=== PATIENT | female | born 1995 | race Two or more races ===

== ENCOUNTER 2020-12-29 13:15 | Outpatient (REF) | payer OTHER, SELFPAY ==
[2020-12-30 02:38] LABS: CT PCR DETECTED (Not Detect.); NG PCR NOT DETECTED (Not Detect.)
== END 2020-12-29 13:16 | disposition home or self-care (01) ==
LOC: HO.LAB 13:15
PROVIDERS: Visit Provider Advanced Practice Midwife
DX: Z01.419 Encounter for gynecological examination (general) (routine) without abnormal findings (principal); Z11.3 Encounter for screening for infections with a predominantly sexual mode of transmission; N60.81 Other benign mammary dysplasias of right breast; Z20.2 Contact with and (suspected) exposure to infections with a predominantly sexual mode of transmission
CPT/HCPCS: 87491; 87591; 88142

== ENCOUNTER 2021-04-09 14:14 | Outpatient (REF) | payer OTHER, SELFPAY ==
[2021-04-10 03:02] LABS: CT PCR NOT DETECTED (Not Detect.); NG PCR NOT DETECTED (Not Detect.)
== END 2021-04-09 14:15 | disposition home or self-care (01) ==
LOC: HO.LAB 14:14
PROVIDERS: Visit Provider Advanced Practice Midwife
DX: Z20.2 Contact with and (suspected) exposure to infections with a predominantly sexual mode of transmission (principal)
CPT/HCPCS: 87491; 87591; 99212

== ENCOUNTER 2021-07-07 12:46 | Emergency (ER) | payer OTHER, SELFPAY ==
--- NOTE | ~2021-07-07 | CT_ITS ---
EXAMINATION: CT ABDOMEN WITHOUT CONTRAST CLINICAL INFORMATION: Right flank pain. COMPARISON: 04/07/2016 TECHNIQUE: Contiguous axial thin section helical images of the abdomen were performed without contrast. The data set was reformatted in the coronal and sagittal planes and reviewed on an independent workstation. This CT examination was performed using dose optimization techniques as appropriate, variously including the following: *Automated exposure control *Adjustment of mA and/or kV according to patient size (this includes techniques or standardized protocols for targeted exams where dose is matched to indication/reason for exam; i.e. extremities or head) *Use of iterative reconstruction technique DLP: 646 mGy-cm FINDINGS: LUNG BASES: Lung bases are clear. LIVER, GALLBLADDER, BILIARY TREE: Liver is homogeneous of normal attenuation without intrahepatic masses or ductal dilatation. Gallbladder is distended without obvious stones. PANCREAS: Unremarkable. SPLEEN: Normal. ADRENAL GLANDS AND KIDNEYS: Adrenal glands are unremarkable. Left kidney demonstrates no hydronephrosis or masses and no calcifications seen. Right kidney revealed multiple calculi in the collecting system with conglomerate of stones in interpolar area measuring 0.6 cm and mild hydronephrosis secondary to partial obstruction of ureteropelvic junction by 0.7 cm conglomerate of stones. Right ureter is not dilated. Urinary bladder is decompressed. BOWEL LOOPS: Bowel loops are normal without evidence of diverticulitis, diverticulosis, colitis. Normal appendix present. LYMPH NODES: Normal. VASCULAR: Unremarkable. BONES: Unremarkable. PELVIC ORGANS: There is IUD in the uterus. The uterus is anteflexed. CT/CT kidney stone IMPRESSION: Right nephrolithiasis with multiple calculi as well as partially obstructing conglomerate of stones in the UPJ. Fleischner guidelines were followed.
[2021-07-07 12:46] VITALS: BP 119/64; PULSE 91; RESP 16; TEMP 36.9; O2SAT 99; BMI 32.2
--- NOTE | 2021-07-07 13:32 | ED_ITS ---
HPI - Abdominal Pain General Chief Complaint: Abdominal Pain Stated Complaint: Kidney stone Time Seen by Provider: 07/07/21 13:01 Source: patient Mode of arrival: ambulatory Limitations: no limitations History of Present Illness HPI narrative: Patient is a 25 year old female presenting to the emergency department today with right flank pain. Patient states that starting yesterday, she started to have right flank pain. Patient states that she has an extensive history of kidney stones. Patient denies any dizziness, lightheadedness, nausea, vomiting, fever, chills, blurry vision, double vision, loss of vision, chest pain, difficulty breathing, shortness of breath, back pain, night sweats, pain with urination, increased urinary frequency, increased urinary urgency, blood in her urine or stool, syncope or a near syncopal episode, recent trauma or falls, bowel incontinence, bladder incontinence, bowel retention, bladder retention, or any other complaints at this time. Patient states that she is also currently on her menstral cycle. MD elicited complaint: flank pain Pertinent past history: kidney stones Onset (ago): day(s) (1) Pain Consistency: constant Location: R flank Related Data Home Medications Medication Instructions Recorded Confirmed copper 380 square mm intrauterine INTRAUTERINE 12/29/20 device (ParaGard T 380A) Previous Rx's Medication Instructions Recorded azithromycin 500 mg tablet 1,000 mg PO ONCE #2 tab 01/04/21 Allergies Allergy/AdvReac Type Severity Reaction Status Date / Time amoxicillin [Amoxicillin] Allergy Severe ANAPHYLAXIS Verified 04/09/21 14:19 Review of Systems Constitutional: Reports no additional constitutional complaints, Denies chills, Denies fever(s) and Denies night sweats Eyes: Reports no additional eye complaints, Denies blurry vision, Denies change in vision, Denies diplopia, Denies eye discharge, Denies loss of vision and Denies eye pain Denies dizziness Cardiovascular: Reports no additional cardiovascular complaints, Denies chest pain, Denies lightheadedness, Denies Loss of Consciousness and Denies dyspnea Respiratory: Reports no additional respiratory complaints and Denies dyspnea Gastrointestinal: Reports no additional gastrointestinal complaints, Denies abdominal pain, Denies melena, Denies hematochezia, Denies change in bowel habits and Denies change in stool character Comments: right flank pain Genitourinary: Denies hematuria, Denies urinary frequency, Denies dysuria, Denies urinary incontinence, Denies urinary hesitancy and Denies urinary urgency Musculoskeletal: Reports no additional musculoskeletal complaints, Denies numbness and Denies tingling Denies dizziness, Denies loss of vision, Denies numbness and Denies tingling Psychiatric: Reports no additional psychiatric complaints Endocrine: Reports no additional endocrine complaints Hematologic/Lymphatic: Reports no additional hematologic/lymphatic complaints Allergic/Immunologic: Reports no additional allergic/immunologic complaints FORMERLY [facility] Past Medical History Attestation statement: The following information was validated with the patient. Source: old records reviewed Medical History Asthma Social History Social History Alcohol intake: never Patient Tobacco Use Status: Never used Tobacco Use of substances other than those prescribed or required for medical reasons: No Advance Directives: No Advance Directives Information Provided: No Sexual orientation: Straight/Heterosexual Gender identity: Female Physical Exam ED Vital Signs: Vital Signs - 24 hr 07/07/21 12:46 07/07/21 13:55 07/07/21 15:27 Temperature 98.5 F Pulse Rate 91 88 68 Respiratory Rate 16 18 18 Blood Pressure 119/64 117/78 101/59 L Pulse Oximetry 99 100 100 BMI result Body Mass Index 32.2 Const General: cooperative, no acute distress, alert and awake Nutritional Appearance: well nourished Orientation/consciousness: patient oriented x3 Limitations: no limitations HENMT Head: Yes normal to inspection and Yes atraumatic Ears: hearing grossly normal bilaterally and external ears normal General nose exam: Normal external nose present, no nasal discharge noted and no epistaxis Face and sinus: Yes normal facial exam, No abrasion and No laceration Mouth: Normal oral and palatal mucosa present, no drooling and no muffled voice Eyes General: appearance normal, both eyes and all related structures Periorbital: periorbital findings normal Eyelids: Yes eyelids normal Conjunctivae: conjunctivae normal Pupils: Equal, round and reactive pupils present EOM: EOMs intact bilaterally Neck Neck: Yes normal visual inspection, Yes full ROM and Yes no lymphadenopathy Chest Chest palpation & inspection: normal inspection of the chest Resp Effort & Inspection: normal respiratory effort and able to speak in complete sentences GI Other: right sided CVA tenderness Inspection: Yes normal to inspection Neuro General: patient oriented x3 and moves all extremities Cranial nerves: Yes Equal, round and reactive pupils present Cognition (Neuro): normal cognition Motor exam (neuro): 5/5 motor strength present throughout Sensory Exam: Normal double simultaneous stimulation for sensation Coordination: [id number] test normal Extrem General: Yes normal to inspection, Yes full ROM and Yes capillary refill normal Psych Appearance: grossly normal Mental Status: mental status grossly normal Affect: normal affect Attitude: cooperative Thought process: Normal thought process present Thought content: Normal thought content present Insight: Good insight present (Psych) MDM - Abdominal Pain MDM Narrative Medical decision making narrative: Patient is a 25 year old female presenting to the emergency department today with right sided flank pain. Patient's physical exam showed right sided CVA tenderness but was otherwise unremarkable. Patient's blood work showed an elevated WBC count. Patient's urine showed an acute urinary infection. Patient's abdominal CT scan showed multiple stones in the right kidney as well as a conglomerate of multiple stones in the right UPJ causing partial obstruction.. I explained my physical exam findings as well as all test results to the patient. I answered all questions asked by the patient. Patient received IV Ketoralac which she stated helped her symptoms significantly. I spoke to Dr. Albrecht, who agreed to medical admission for continued IV ABX and a urology consult. Patient verbalized agreement and understanding with this treatment plan and admission. It should also be noted that during the duration of the patient's stay in the Emergency Department, the patient was not displaying signs of Sepsis/SIRS and at no point did I have any clinical concern of Sepsis or SIRS. Differential Diagnosis Differential diagnosis: Likely calculus of kidney and renal colic Medical Records Attestation: I reviewed the patient's medical records. Lab Data Attestation: I reviewed the patient's lab results. Result diagrams: 07/07/21 14:47 07/07/21 14:47 Labs: Lab Results 07/07/21 07/07/21 07/07/21 Range/Units 14:47 14:47 15:25 WBC 16.5 H (4.8-10.8) X10*3/uL RBC 4.84 (4.20-5.50) X10*6/uL Hgb 13.7 (12.0-16.0) g/dl Hct 40.7 (37.0-47.0) % MCV 84.1 (80.0-98.0) fL MCH 28.3 (27.0-33.0) pg MCHC 33.7 (31.0-35.0) g/dl RDW 12.7 (11.0-16.0) % Plt Count 369 (160-400) X10*3/uL MPV 10.3 (9.4-12.3) fL Immature Gran % (Auto) 0.4 (0.0-0.4) % Neut % (Auto) 84.0 H (45-73) % Lymph % (Auto) 10.2 L (20-40) % [place] % (Auto) 4.4 (2-11) % Eos % (Auto) 0.8 (0-4) % Baso % (Auto) 0.2 (0-2) % Lymph # (Auto) 1.7 (1.2-4.9) X10*3/uL [place] # (Auto) 0.7 (0.1-1.2) X10*3/uL Eos # (Auto) 0.1 (0.0-0.4) X10*3/uL Baso # (Auto) 0.0 (0.0-0.2) X10*3/uL Abs Immat Gran (auto) 0.07 H (0.00-0.03) X10*3/uL Absolute Neuts (auto) 13.9 H (2.0-8.3) x10*3/uL Absolute Nucleated RBC 0.000 (0.0-0.012) X10*3/uL Nucleated RBC % (auto) 0.0 (0.0-0.2) /100WBC Sodium 139 (135-145) mmol/L Potassium 4.2 (3.3-5.1) mmol/L Chloride 106 (96-108) mmol/L Carbon Dioxide 25 (22-29) mmol/L Anion Gap 12 (12-20) BUN 14 (9-16) mg/dL Creatinine 0.80 (0.5-1.4) mg/dL Estim Creat Clear Calc 98.8 Estimated GFR > 60 Random Glucose 109 (60-115) mg/dL Calcium 10.1 (8.4-10.2) mg/dL Magnesium 2.1 (1.6-2.6) mg/dL Total Bilirubin 0.4 (0.0-1.0) mg/dL AST 16 (5-31) U/L ALT 10 (0-31) U/L Alkaline Phosphatase 81 (39-117) U/L Total Protein 7.3 (6.5-8.0) g/dL Albumin 4.2 (3.5-5.0) g/dL Urine Color Urine Appearance Urine pH (5.0-8.0) Ur Specific [place] (1.005-1.025) Urine Protein (NEG-TRACE) MG/DL Urine Glucose (UA) (NEG) MG/DL Urine Ketones (NEG) MG/DL Urine Blood (NEG) Urine Nitrite (NEG) Ur Leukocyte Esterase (NEG) Urine RBC (0) /HPF Urine WBC (0-4) /HPF Ur Squamous Epith Cells /LPF Calcium Oxalate Crystal /LPF Urine Bacteria /LPF Urine Mucus /LPF Urine Test NEGATIVE (NEGATIVE) 07/07/21 Range/Units 15:25 WBC (4.8-10.8) X10*3/uL RBC (4.20-5.50) X10*6/uL Hgb (12.0-16.0) g/dl Hct (37.0-47.0) % MCV (80.0-98.0) fL MCH (27.0-33.0) pg MCHC (31.0-35.0) g/dl RDW (11.0-16.0) % Plt Count (160-400) X10*3/uL MPV (9.4-12.3) fL Immature Gran % (Auto) (0.0-0.4) % Neut % (Auto) (45-73) % Lymph % (Auto) (20-40) % [place] % (Auto) (2-11) % Eos % (Auto) (0-4) % Baso % (Auto) (0-2) % Lymph # (Auto) (1.2-4.9) X10*3/uL [place] # (Auto) (0.1-1.2) X10*3/uL Eos # (Auto) (0.0-0.4) X10*3/uL Baso # (Auto) (0.0-0.2) X10*3/uL Abs Immat Gran (auto) (0.00-0.03) X10*3/uL Absolute Neuts (auto) (2.0-8.3) x10*3/uL Absolute Nucleated RBC (0.0-0.012) X10*3/uL Nucleated RBC % (auto) (0.0-0.2) /100WBC Sodium (135-145) mmol/L Potassium (3.3-5.1) mmol/L Chloride (96-108) mmol/L Carbon Dioxide (22-29) mmol/L Anion Gap (12-20) BUN (9-16) mg/dL Creatinine (0.5-1.4) mg/dL Estim Creat Clear Calc Estimated GFR Random Glucose (60-115) mg/dL Calcium (8.4-10.2) mg/dL Magnesium (1.6-2.6) mg/dL Total Bilirubin (0.0-1.0) mg/dL AST (5-31) U/L ALT (0-31) U/L Alkaline Phosphatase (39-117) U/L Total Protein (6.5-8.0) g/dL Albumin (3.5-5.0) g/dL Urine Color OTHER A Urine Appearance CLOUDY Urine pH 6.0 (5.0-8.0) Ur Specific [place] >= 1.030 H (1.005-1.025) Urine Protein 2+ H (NEG-TRACE) MG/DL Urine Glucose (UA) NEG (NEG) MG/DL Urine Ketones 40 (NEG) MG/DL Urine Blood 3+ H (NEG) Urine Nitrite POS H (NEG) Ur Leukocyte Esterase 2+ H (NEG) Urine RBC 10-14 H (0) /HPF Urine WBC 30-49 H (0-4) /HPF Ur Squamous Epith Cells TRACE /LPF Calcium Oxalate Crystal TRACE /LPF Urine Bacteria 2+ /LPF Urine Mucus 1+ /LPF Urine Test (NEGATIVE) Imaging Data CT scan - abdomen: Attestation: I personally reviewed and interpreted this imaging study as follows: Radiologist's impression: EXAMINATION: CT ABDOMEN WITHOUT CONTRAST CLINICAL INFORMATION: Right flank pain.? COMPARISON: 04/07/2016? TECHNIQUE: Contiguous axial thin section helical images of the abdomen were performed without contrast. The data set was reformatted in the coronal and sagittal planes and reviewed on an independent workstation. This CT examination was performed using dose optimization techniques as appropriate, variously including the following: *Automated exposure control *Adjustment of mA and/or kV according to patient size (this includes techniques or standardized protocols for targeted exams where dose is matched to indication/reason for exam; i.e. extremities or head) *Use of iterative reconstruction technique DLP: 646 mGy-cm FINDINGS: LUNG BASES: Lung bases are clear.? LIVER, GALLBLADDER, BILIARY TREE: Liver is homogeneous of normal attenuation without intrahepatic masses or ductal dilatation. Gallbladder is distended without obvious stones.? PANCREAS: Unremarkable.? SPLEEN: Normal.? ADRENAL GLANDS AND KIDNEYS: Adrenal glands are unremarkable. Left kidney demonstrates no hydronephrosis or masses and no calcifications seen. Right kidney revealed multiple calculi in the collecting system with conglomerate of stones in interpolar area measuring 0.6 cm and mild hydronephrosis secondary to partial obstruction of ureteropelvic junction by 0.7 cm conglomerate of stones. Right ureter is not dilated. Urinary bladder is decompressed.? BOWEL LOOPS: Bowel loops are normal without evidence of diverticulitis, diverticulosis, colitis. Normal appendix present.? LYMPH NODES: Normal. VASCULAR: Unremarkable. BONES: Unremarkable. ? PELVIC ORGANS: There is IUD in the uterus. The uterus is anteflexed. CT/CT kidney stone IMPRESSION: Right nephrolithiasis with multiple calculi as well as partially obstructing conglomerate of stones in the UPJ. ? Fleischner guidelines were followed. Dictated By: Anabel Samaniego MD Signed By: Electronically signed by Anabel Samaniego MD 07/07/21 7081 Discharge Plan Discharge Clinical Impression: Calculus of kidney, Pyelonephritis, Urinary tract infection Patient Disposition: Admitted As Inpatient Prescriptions: No Action azithromycin 500 mg tablet 1,000 mg PO ONCE Qty: 2 0RF Rx Instructions: take medication all at once ParaGard T 380A 380 square mm intrauterine device intrauterine 0RF Print Language: [place] Citizen
[2021-07-07 13:55] VITALS: BP 117/78; PULSE 88; RESP 18; O2SAT 100
[2021-07-07] MEDS: Ketorolac Tromethamine 30 MG/ML VIAL IM (13:56)
[2021-07-07 14:51] LABS: MANUAL DIFF FLAG NO
[2021-07-07 14:57] LABS: Basophils Percent Auto 0.2 % (0-2); Eosinophils Absolute Auto 0.1 X10*3/uL (0.0-0.4); Eosinophils Percent Auto 0.8 % (0-4); Hematocrit 40.7 % (37.0-47.0); Hemoglobin 13.7 g/dl (12.0-16.0); Imm Gran Abs Auto 0.07 X10*3/uL (0.00-0.03); Imm Gran Pct Auto 0.4 % (0.0-0.4); Lymphocytes Absolute Auto 1.7 X10*3/uL (1.2-4.9); Lymphocytes Percent Auto 10.2 % (20-40); Mean Corpuscular HGB Conc 33.7 g/dl (31.0-35.0); Mean Corpuscular Hemoglobin 28.3 pg (27.0-33.0); Mean Corpuscular Volume 84.1 fL (80.0-98.0); Mean Platelet Volume 10.3 fL (9.4-12.3); Monocytes Absolute Auto 0.7 X10*3/uL (0.1-1.2); Monocytes Percent Auto 4.4 % (2-11); Neutrophils Absolute Auto 13.9 x10*3/uL (2.0-8.3); Platelet Count 369 X10*3/uL (160-400); Red Blood Count 4.84 X10*6/uL (4.20-5.50); Red Cell Distribution Width 12.7 % (11.0-16.0); White Blood Count 16.5 X10*3/uL (4.8-10.8)
[2021-07-07 15:08] LABS: Alanine Aminotransferase 10 U/L (0-31); Albumin Level 4.2 g/dL (3.5-5.0); Alkaline Phosphatase 81 U/L (39-117); Anion Gap 12 (12-20); Aspartate Amino Transferase 16 U/L (5-31); Bilirubin Total 0.4 mg/dL (0.0-1.0); Blood Urea Nitrogen 14 mg/dL (9-16); Calcium 10.1 mg/dL (8.4-10.2); Carbon Dioxide 25 mmol/L (22-29); Chloride 106 mmol/L (96-108); Creatinine Clr Calc Pharmacy 98.8; Estimated Glomerular Filt Rate > 60; Glucose Random 109 mg/dL (60-115); Magnesium 2.1 mg/dL (1.6-2.6); Potassium 4.2 mmol/L (3.3-5.1); Sodium 139 mmol/L (135-145); Total Protein 7.3 g/dL (6.5-8.0)
[2021-07-07 15:27] VITALS: BP 101/59; PULSE 68; RESP 18; O2SAT 100
[2021-07-07 15:39] LABS: Appearance Urine CLOUDY; Glucose Urine UA NEG (NEG); Leukocyte Esterase Urine 2+ (NEG); Nitrite Urine POS (NEG); Specific Gravity - Urine >= 1.030 (1.005-1.025); UACC Culture Trigger YES; UPreg QC Valid YES; Urine Blood 3+ (NEG); Urine Ketones 40 MG/DL (NEG); Urine Pregnancy NEGATIVE (NEGATIVE); Urine Protein 2+ MG/DL (NEG-TRACE)
[2021-07-07 15:41] LABS: Color Urine OTHER
[2021-07-07 16:13] LABS: Bacteria Urine 2+ /LPF; Calcium Oxalate Crystals Urine TRACE /LPF; Mucus Urine 1+ /LPF; Squamous Epithelial Cell Urine TRACE /LPF; WBC Urine 30-49 /HPF (0-4)
[2021-07-07] MEDS: levoFLOXacin/D5W 750 MG/150 ML PIGGYBACK 100 MG IV (17:14)
[2021-07-07] MEDS: oxyCODONE HCl Immed Release 5 MG TABLET PO (19:49)
== END 2021-07-07 20:01 | disposition home or self-care (01) ==
PROVIDERS: Physician Assistant; Physician Assistant Medical; Emergency Provider Emergency Medicine Emergency Medical Services
DX: N13.6 Pyonephrosis (principal); N39.0 Urinary tract infection, site not specified; Z87.442 Personal history of urinary calculi
CPT/HCPCS: 36415; 74176; 80053; 81001; 81025; 83735; 85025; 87086; 87088; 87186; 96365; 96372; 99284; 99285; J1885; J1956

== ENCOUNTER 2021-07-08 02:07 | Emergency (ER) | payer OTHER, SELFPAY ==
[2021-07-08 02:17] VITALS: BP 116/82; PULSE 94; RESP 20; TEMP 36; O2SAT 95; BMI 31.2
[2021-07-08] MEDS: Ketorolac Tromethamine 60 MG/2 ML VIAL IM (02:53)
--- NOTE | 2021-07-08 02:53 | ED.GENADULT ---
HPI - General Adult General Chief complaint: Nausea/Vomiting/Diarrhea Stated complaint: kidney stone pain still persistent Time Seen by Provider: 07/08/21 02:44 Source: patient Mode of arrival: ambulatory Limitations: no limitations History of Present Illness HPI narrative: Patient comes to emergency room complaining of right-sided flank pain. Patient was discharged from the emergency room approximately 7 hours ago. Patient was supposed to go to the pharmacy and flower buncher or picker her medications, however the pharmacy was closed by the time she was discharged. Patient complaining of nausea and right-sided flank pain. Of note, MACRINA Lou prep discussed the patient with Dr. Larios, who recommended discharge home with antibiotics and pain medication. Patient was given an additional dose of hydromorphone and prochlorperazine p.o. Patient feeling better, no longer vomiting. Patient being discharged. Patient's medications were recent to a 24 hour pharmacy Related Data Home Medications Medication Instructions Recorded Confirmed copper 380 square mm intrauterine INTRAUTERINE 12/29/20 device (ParaGard T 380A) Previous Rx's Medication Instructions Recorded azithromycin 500 mg tablet 1,000 mg PO ONCE #2 tab 01/04/21 ketorolac 10 mg tablet 10 mg PO Q4-6H PRN 5 Days #20 tab 07/07/21 levofloxacin 750 mg tablet 750 mg PO DAILY 7 Days #7 tab 07/07/21 ketorolac 10 mg tablet 10 mg PO TID PRN 5 Days #10 tab 07/08/21 levofloxacin 500 mg tablet 500 mg PO DAILY #9 tab 07/08/21 ondansetron HCl 4 mg tablet 4 mg PO Q6H PRN #14 tab 07/08/21 prednisone 20 mg tablet 20 mg PO DAILY #3 tab 07/08/21 tamsulosin 0.4 mg capsule 0.4 mg PO DAILY #7 cap 07/08/21 Allergies Allergy/AdvReac Type Severity Reaction Status Date / Time amoxicillin [Amoxicillin] Allergy Severe ANAPHYLAXIS Verified 07/08/21 02:16 Review of Systems Review of Systems: Constitutional : No Weight loss, No Fever, No Chills, No Night Sweats, No Fatigue, No Malaise ENT/Mouth : No Hearing loss, No Ear Pain, No Nasal Congestion, No Sinus Pain, No Hoarseness, No sore throat, No Rhinorrhea, No Swallowing Difficulty Eyes: No Eye Pain, No Swelling, No Redness, No Foreign Body, No Discharge, No Vision Changes Cardiovascular : No Chest Pain, No SOB, No Dyspnea on Exertion, No Orthopnea, No Edema, No Palpitations Respiratory : No Cough, No Sputum, No Wheezing, No Smoke Exposure, No Dyspnea Gastrointestinal : Complaining of nausea and vomiting No Diarrhea, No Constipation, No abdominal Pain, No Hematochezia, No Melena Genitourinary : no irregular bleeding, No Dysuria, No Urinary Frequency, No Hematuria, No Urinary Incontinence, No Urgency, complaining of right-sided Flank Pain, No Urinary Flow Changes, No Hesitancy Musculoskeletal : No joint pain, No Myalgias, No Joint Swelling Skin : No Skin Lesions, No rash Neuro : No Weakness, No Numbness, No Paresthesias, No Loss of Consciousness, No Dizziness, No Headache Psych : No Anxiety/Panic, No Depression, No SI/HI/AH/VH, No Social Issues, Heme/Lymph: No Bruising, No Bleeding,No Lymphadenopathy Endocrine : No Polyuria, No Polydipsia, No Temperature Intolerance COUNT INCLUDES THE [facility] Past Medical History Medical History (Updated 07/08/21 @ 03:25 by Bushra Butler MD) Asthma Kidney stones Social History Social History Alcohol intake: never Patient Tobacco Use Status: Never used Tobacco Advance Directives: No Advance Directives Information Provided: Yes Patient : No Sexual orientation: Straight/Heterosexual Gender identity: Female Physical Exam ED Vital Signs: Vital Signs - 24 hr 07/08/21 02:17 07/08/21 03:31 07/08/21 03:36 Temperature 96.8 F Pulse Rate 94 Respiratory Rate 20 16 16 Blood Pressure 116/82 Pulse Oximetry 95 07/08/21 04:34 Temperature Pulse Rate 81 Respiratory Rate 18 Blood Pressure 114/82 Pulse Oximetry 97 BMI result Body Mass Index 31.2 Const Other: Appearance: Alert. Oriented X3. The patient looks very uncomfortable Eyes: Pupils equal, round and reactive to light. ENT: Pharynx normal. Neck: Normal inspection. Neck supple. No lymph nodes noted. No crepitus CVS: Normal heart rate and rhythm. Pulses normal. Normal S1 and S2 Respiratory: No respiratory distress. Breath sounds normal. No Wheezing. No rales Abdomen: Soft and nontender. No rigidity. No distention. Back: Positive CVA tenderness on the right side Skin: Skin warm and dry. Normal skin color. Normal skin turgor. Extremities: No lower extremity edema. No Lacerations. No Rash Neuro: Oriented X 3. No motor deficit. No sensory deficit. Moving all extermities. No slurred speech. Course Course Course Narrative: On her previous ER visit, patient received Levaquin. She is all set with antibiotics for now. Patient now getting IM Toradol, sublingual Zofran Discharge Plan Discharge Clinical Impression: Kidney stones Patient Disposition: Home, Self-Care Instructions: Kidney Stones (ED), Flank Pain (ED) Additional Instructions: Please follow-up with your primary care physician tomorrow. If you have any worsening or new symptoms, please return to the emergency room or call 911 Prescriptions: New levofloxacin 500 mg tablet 500 mg PO DAILY Qty: 9 0RF ondansetron HCl 4 mg tablet 4 mg PO Q6H PRN (Reason: nausea and vomiting) Qty: 14 0RF ketorolac 10 mg tablet 10 mg PO TID PRN (Reason: pain) 5 Days Qty: 10 0RF Rx Instructions: Do not use this medication with Motrin/ibuprofen, only use Tylenol if needed prednisone 20 mg tablet 20 mg PO DAILY Qty: 3 0RF tamsulosin 0.4 mg capsule 0.4 mg PO DAILY Qty: 7 0RF No Action azithromycin 500 mg tablet 1,000 mg PO ONCE Qty: 2 0RF Rx Instructions: take medication all at once levofloxacin 750 mg tablet 750 mg PO DAILY 7 Days Qty: 7 0RF ketorolac 10 mg tablet 10 mg PO Q4-6H PRN (Reason: pain) 5 Days Qty: 20 0RF Rx Instructions: do not exceed 4 doses per 24 hrs ParaGard T 380A 380 square mm intrauterine device intrauterine 0RF
[2021-07-08] MEDS: Ondansetron ODT 4 MG TAB.RAPDIS TRANSLINGU (02:55)
[2021-07-08 03:31] VITALS: RESP 16
[2021-07-08] MEDS: HYDROmorphone HCl 1 MG/ML SYRINGE IM (03:31)
[2021-07-08 03:36] VITALS: RESP 16
[2021-07-08] MEDS: Prochlorperazine Maleate 5 MG TABLET 10 MG PO (04:26)
[2021-07-08 04:34] VITALS: BP 114/82; PULSE 81; RESP 18; O2SAT 97
[2021-07-08 05:33] VITALS: BP 118/66; PULSE 95; O2SAT 100
== END 2021-07-08 05:38 | disposition home or self-care (01) ==
PROVIDERS: Emergency Provider Emergency Medicine
DX: N20.0 Calculus of kidney (principal); Z79.899 Other long term (current) drug therapy
CPT/HCPCS: 96372; 99284; J1170; J1885

== ENCOUNTER 2021-07-08 19:01 | Inpatient (IN) | payer OTHER, SELFPAY ==
--- NOTE | ~2021-07-08 | FL_ITS ---
EXAMINATION: XR FLUOROSCOPY WITH IMAGES CLINICAL INFORMATION: Renal stone, right. COMPARISON: CT renal 07/07/2021 TECHNIQUE: Fluoroscopy performed by Dr. Bernard Larios. Fluoroscopy time: 1.2 minutes DAP: 7.9 mGycm2 Images: 3 FINDINGS: Imaging demonstrates a catheter and wire in the right renal pelvis with adjacent stone. Final image shows contrast in the pelvis which outlines the stone. FL/FL guidance in OR IMPRESSION: Fluoroscopy and spot films provided during retrograde pyelography.
[2021-07-08 19:14] VITALS: BP 121/71; PULSE 116; RESP 18; TEMP 36.6; O2SAT 100; BMI 32.2
[2021-07-08 19:22] LABS: Appearance Urine HAZY; Color Urine YELLOW; Glucose Urine UA NEG (NEG); Leukocyte Esterase Urine 1+ (NEG); Nitrite Urine NEG (NEG); Specific Gravity - Urine >= 1.030 (1.005-1.025); UACC Culture Trigger YES; Urine Blood 3+ (NEG); Urine Ketones 40 MG/DL (NEG); Urine Protein 1+ MG/DL (NEG-TRACE)
[2021-07-08 19:29] LABS: Squamous Epithelial Cell Urine 2+ /LPF
[2021-07-08 19:30] LABS: Bacteria Urine TRACE /LPF; WBC Urine 30-49 /HPF (0-4)
--- NOTE | 2021-07-08 20:47 | ED.FEMALEGU ---
HPI - Female Genitourinary General Chief complaint: Urogenital-Female Stated complaint: kidney stone Time Seen by Provider: 07/08/21 20:47 Source: patient Mode of arrival: ambulatory Limitations: no limitations History of Present Illness HPI Narrative: Patientwith history of kidney stones been having pain in the right flank area for last 3 days also had low-grade fever nausea vomiting patient went home yesterday continue to vomit took her Levaquin which she vomited within half an hour comes here for continued pain nausea and vomiting patient urine cultures grew Gram-negative rods Related Data Previous Rx's Medication Instructions Recorded levofloxacin 750 mg tablet 750 mg PO DAILY 7 Days #7 tab 07/07/21 ketorolac 10 mg tablet 10 mg PO TID PRN 5 Days #10 tab 07/08/21 ondansetron HCl 4 mg tablet 4 mg PO Q6H PRN #14 tab 07/08/21 prednisone 20 mg tablet 20 mg PO DAILY #3 tab 07/08/21 tamsulosin 0.4 mg capsule 0.4 mg PO DAILY #7 cap 07/08/21 Allergies Allergy/AdvReac Type Severity Reaction Status Date / Time amoxicillin [Amoxicillin] Allergy Severe ANAPHYLAXIS Verified 07/08/21 02:16 Review of Systems Review of Systems: Yes all other systems are reviewed and are negative [facility] Past Medical History Medical History Asthma Kidney stones Social History Social History Alcohol intake: never Patient Tobacco Use Status: Never used Tobacco Advance Directives: No Advance Directives Information Provided: No Patient : No Sexual orientation: Straight/Heterosexual Gender identity: Female Physical Exam Vital Signs: Vital Signs: Last Vital Signs Temp 99.5 F 07/08/21 21:14 Pulse 98 07/08/21 21:14 Resp 16 07/08/21 21:14 BP 117/72 07/08/21 21:14 Pulse Ox 98 07/08/21 21:14 BMI result Body Mass Index 32.2 Appearance: Alert. Oriented X3. In moderate distress. Eyes: No pallor icterus ENT: Pharynx normal. Oral Mucosa moist Neck: Normal inspection. Neck supple. CVS: Normal heart rate and rhythm. Pulses normal. Respiratory: No respiratory distress. Equal air entry bilateral, no wheezing/rales/rhonchi Abdomen: Soft and nontender. Bowel sounds are present, no mass palpable, r CVA tenderness Skin: Skin warm and dry. Normal skin color. Normal skin turgor. Extremities: No lower extremity edema. No calf tenderness Neuro: Oriented X 3. MDM - Female Genitourinary MDM Narrative Medical decision making narrative: Patient with obstructive kidney stone was given prednisone but consider elevated 26.7 likely from infection and prednisone use has normal lactic acid of 1.1 continue IV Levaquin admit patient for infected obstructed stone with pyelonephritis Medical Records Attestation: I reviewed the patient's medical records. Lab Data Attestation: I reviewed the patient's lab results. Result diagrams: 07/08/21 21:01 07/08/21 21:43 Labs: Lab Results 07/08/21 07/08/21 07/08/21 Range/Units 19:17 21:01 21:01 WBC 26.7 H (4.8-10.8) X10*3/uL RBC 4.87 (4.20-5.50) X10*6/uL Hgb 13.6 (12.0-16.0) g/dl Hct 41.2 (37.0-47.0) % MCV 84.6 (80.0-98.0) fL MCH 27.9 (27.0-33.0) pg MCHC 33.0 (31.0-35.0) g/dl RDW 13.0 (11.0-16.0) % Plt Count 360 (160-400) X10*3/uL MPV 10.9 (9.4-12.3) fL Immature Gran % (Auto) 0.4 (0.0-0.4) % Neut % (Auto) 88.3 H (45-73) % Lymph % (Auto) 4.3 L (20-40) % [place] % (Auto) 6.8 (2-11) % Eos % (Auto) 0.0 (0-4) % Baso % (Auto) 0.2 (0-2) % Lymph # (Auto) 1.2 (1.2-4.9) X10*3/uL [place] # (Auto) 1.8 H (0.1-1.2) X10*3/uL Eos # (Auto) 0.0 (0.0-0.4) X10*3/uL Baso # (Auto) 0.1 (0.0-0.2) X10*3/uL Abs Immat Gran (auto) 0.11 H (0.00-0.03) X10*3/uL Absolute Neuts (auto) 23.6 H (2.0-8.3) x10*3/uL Absolute Nucleated RBC 0.000 (0.0-0.012) X10*3/uL Nucleated RBC % (auto) 0.0 (0.0-0.2) /100WBC Smear Tech's Comments VERIFIED Sodium (135-145) mmol/L Potassium (3.3-5.1) mmol/L Chloride (96-108) mmol/L Carbon Dioxide (22-29) mmol/L Anion Gap (12-20) BUN (9-16) mg/dL Creatinine (0.5-1.4) mg/dL Estim Creat Clear Calc Estimated GFR Random Glucose (60-115) mg/dL Lactic Acid 1.1 (0.5-2.0) mmol/L Calcium (8.4-10.2) mg/dL Total Bilirubin (0.0-1.0) mg/dL AST (5-31) U/L ALT (0-31) U/L Alkaline Phosphatase (39-117) U/L Total Protein (6.5-8.0) g/dL Albumin (3.5-5.0) g/dL Urine Color YELLOW Urine Appearance HAZY Urine pH 6.0 (5.0-8.0) Ur Specific [place] >= 1.030 H (1.005-1.025) Urine Protein 1+ H (NEG-TRACE) MG/DL Urine Glucose (UA) NEG (NEG) MG/DL Urine Ketones 40 (NEG) MG/DL Urine Blood 3+ H (NEG) Urine Nitrite NEG (NEG) Ur Leukocyte Esterase 1+ H (NEG) Urine RBC 5-9 H (0) /HPF Urine WBC 30-49 H (0-4) /HPF Ur Squamous Epith Cells 2+ /LPF Urine Bacteria TRACE /LPF COVID-19 ([facility]) (Negative) COVID-19 Clin Com 07/08/21 07/08/21 Range/Units 21:43 22:00 WBC (4.8-10.8) X10*3/uL RBC (4.20-5.50) X10*6/uL Hgb (12.0-16.0) g/dl Hct (37.0-47.0) % MCV (80.0-98.0) fL MCH (27.0-33.0) pg MCHC (31.0-35.0) g/dl RDW (11.0-16.0) % Plt Count (160-400) X10*3/uL MPV (9.4-12.3) fL Immature Gran % (Auto) (0.0-0.4) % Neut % (Auto) (45-73) % Lymph % (Auto) (20-40) % [place] % (Auto) (2-11) % Eos % (Auto) (0-4) % Baso % (Auto) (0-2) % Lymph # (Auto) (1.2-4.9) X10*3/uL [place] # (Auto) (0.1-1.2) X10*3/uL Eos # (Auto) (0.0-0.4) X10*3/uL Baso # (Auto) (0.0-0.2) X10*3/uL Abs Immat Gran (auto) (0.00-0.03) X10*3/uL Absolute Neuts (auto) (2.0-8.3) x10*3/uL Absolute Nucleated RBC (0.0-0.012) X10*3/uL Nucleated RBC % (auto) (0.0-0.2) /100WBC Smear Tech's Comments Sodium 137 (135-145) mmol/L Potassium 3.7 (3.3-5.1) mmol/L Chloride 108 (96-108) mmol/L Carbon Dioxide 19 L (22-29) mmol/L Anion Gap 14 (12-20) BUN 16 (9-16) mg/dL Creatinine 1.35 (0.5-1.4) mg/dL Estim Creat Clear Calc 58.5 Estimated GFR 49 Random Glucose 116 H (60-115) mg/dL Lactic Acid (0.5-2.0) mmol/L Calcium 8.7 D (8.4-10.2) mg/dL Total Bilirubin 0.5 (0.0-1.0) mg/dL AST 15 (5-31) U/L ALT 9 (0-31) U/L Alkaline Phosphatase 63 D (39-117) U/L Total Protein 6.2 L (6.5-8.0) g/dL Albumin 3.5 (3.5-5.0) g/dL Urine Color Urine Appearance Urine pH (5.0-8.0) Ur Specific [place] (1.005-1.025) Urine Protein (NEG-TRACE) MG/DL Urine Glucose (UA) (NEG) MG/DL Urine Ketones (NEG) MG/DL Urine Blood (NEG) Urine Nitrite (NEG) Ur Leukocyte Esterase (NEG) Urine RBC (0) /HPF Urine WBC (0-4) /HPF Ur Squamous Epith Cells /LPF Urine Bacteria /LPF COVID-19 ([facility]) Negative (Negative) COVID-19 Clin Com See Note Discharge Plan Discharge Clinical Impression: Kidney stones, Pyelonephritis Patient Disposition: Admitted As Inpatient
[2021-07-08] MEDS: Morphine Sulfate 4 MG/ML CARTRIDGE IVPUSH (21:07)
[2021-07-08] MEDS: ondansetron HCL 4 MG/2 ML VIAL IVPUSH (21:07)
[2021-07-08] MEDS: Ketorolac Tromethamine 30 MG/ML VIAL IVPUSH (21:07)
[2021-07-08 21:14] VITALS: BP 117/72; PULSE 98; RESP 16; TEMP 37.5; O2SAT 98
[2021-07-08 21:27] LABS: Basophils Absolute Auto 0.1 X10*3/uL (0.0-0.2); Basophils Percent Auto 0.2 % (0-2); Hematocrit 41.2 % (37.0-47.0); Hemoglobin 13.6 g/dl (12.0-16.0); Imm Gran Abs Auto 0.11 X10*3/uL (0.00-0.03); Imm Gran Pct Auto 0.4 % (0.0-0.4); Lymphocytes Absolute Auto 1.2 X10*3/uL (1.2-4.9); Lymphocytes Percent Auto 4.3 % (20-40); MANUAL DIFF FLAG SCAN; Mean Corpuscular Hemoglobin 27.9 pg (27.0-33.0); Mean Corpuscular Volume 84.6 fL (80.0-98.0); Mean Platelet Volume 10.9 fL (9.4-12.3); Monocytes Absolute Auto 1.8 X10*3/uL (0.1-1.2); Monocytes Percent Auto 6.8 % (2-11); Neutrophils Absolute Auto 23.6 x10*3/uL (2.0-8.3); Neutrophils Percent Auto 88.3 % (45-73); Platelet Count 360 X10*3/uL (160-400); Red Blood Count 4.87 X10*6/uL (4.20-5.50); SCAN SMEAR FLAG 1; White Blood Count 26.7 X10*3/uL (4.8-10.8)
[2021-07-08] MEDS: levoFLOXacin/D5W 500 MG/100 ML PIGGYBACK 100 MG IV (21:42)
[2021-07-08] MEDS: 0.9 % Sodium Chloride 1,000 ML 999 ML IV (21:42)
[2021-07-08 21:43] LABS: Lactic Acid 1.1 mmol/L (0.5-2.0)
[2021-07-08 21:46] LABS: SLIDE REVIEW VERIFIED
[2021-07-08 22:09] LABS: Alanine Aminotransferase 9 U/L (0-31); Albumin Level 3.5 g/dL (3.5-5.0); Alkaline Phosphatase 63 U/L (39-117); Anion Gap 14 (12-20); Aspartate Amino Transferase 15 U/L (5-31); Bilirubin Total 0.5 mg/dL (0.0-1.0); Blood Urea Nitrogen 16 mg/dL (9-16); Calcium 8.7 mg/dL (8.4-10.2); Carbon Dioxide 19 mmol/L (22-29); Chloride 108 mmol/L (96-108); Creatinine Clr Calc Pharmacy 58.5; Estimated Glomerular Filt Rate 49; Glucose Random 116 mg/dL (60-115); Potassium 3.7 mmol/L (3.3-5.1); Sodium 137 mmol/L (135-145); Total Protein 6.2 g/dL (6.5-8.0)
[2021-07-08 22:21] LABS: COVID-19 Test Negative (Negative)
[2021-07-09] VITALS (9 sets, daily range): BP systolic 86–121; BP diastolic 45–76; PULSE 72–106; RESP 16–18; TEMP 36.4–37.1; O2SAT 94–100
--- NOTE | 2021-07-09 02:43 | PM.IMHP ---
History of Present Illness Date of Service: 07/09/21 Chief Complaint: right flank pain 25-year-old female with past medical history of controlled asthma presents to the hospital with complaints of right flank pain. Patient presented hospital [facility] previous, found to have UPJ stone, sent home with levofloxacin but reports that she had continued nausea and vomiting and as well as worsening right flank pain and therefore came back to the hospital. She denies any fever, no chest pain, no shortness of breath, no urinary symptoms and no lower extremity edema. Patient denies any dysuria, no frequency. patient reports history of kidney stones treated with lithotripsy in the past On arrival to the ED patient hemodynamically stable with heart rate of 116 otherwise unremarkable Labs are significant for WBC count of 26.7, UA positive for leukocyte Estrace and WBC CT of the abdomen done on 07/07 showed right nephrolithiasis with multiple calculi as well as partially obstructing conglomerate of stones in the UPJ patient's started on IV antibiotics and will be admitted for further management Review of Systems Review of Systems: Yes all other systems are reviewed and are negative [facility] Medical History (Updated 07/08/21 @ 22:04 by Los Price MD) Asthma Kidney stones Family History (Updated 07/09/21 @ 06:59 by Naomi Rushing MD) Mother Diabetes Surgical History (Updated 07/09/21 @ 07:00 by Naomi Rushing MD) H/O lithotripsy Social History Alcohol intake: never Patient Tobacco Use Status: Never used Tobacco Advance Directives: No Advance Directives Information Provided: No Patient : No Sexual orientation: Straight/Heterosexual Gender identity: Female Meds Allergies Allergy/AdvReac Type Severity Reaction Status Date / Time amoxicillin [Amoxicillin] Allergy Severe ANAPHYLAXIS Verified 07/08/21 02:16 Physical Exam Vital Signs and Narrative: Vital Signs: Last Vital Signs Temp 99.5 F 07/08/21 21:14 Pulse 98 07/08/21 21:14 Resp 16 07/08/21 21:14 BP 117/72 07/08/21 21:14 Pulse Ox 98 07/08/21 21:14 BMI result Body Mass Index 32.2 Const: General: cooperative and no acute distress Orientation/consciousness: patient oriented x3 Eyes: General: appearance normal, both eyes and all related structures Pupils: Equal, round and reactive pupils present Resp: Effort & Inspection: normal respiratory effort Auscultation: clear to auscultation bilaterally Cardio: Rate: regular rate Rhythm: regular rhythm GI: Palpation (GI): Soft to palpation Auscultation: normal bowel sounds : Other: right CVA tenderness Skin: General skin exam: no rashes or lesions noted Neuro: General: patient oriented x3 Cranial nerves: Yes Equal, round and reactive pupils present Cognition (Neuro): normal cognition Extrem: General: Yes normal to inspection and Yes no pedal edema Results Labs CBC and Chem 7: 07/08/21 21:01 07/08/21 21:43 Labs: Laboratory Results - last 24 hr 07/08/21 07/08/21 07/08/21 19:17 21:01 21:01 MCV 84.6 MCH 27.9 MCHC 33.0 RDW 13.0 Plt Count 360 MPV 10.9 Immature Gran % (Auto) 0.4 Neut % (Auto) 88.3 H Lymph % (Auto) 4.3 L [place] % (Auto) 6.8 Eos % (Auto) 0.0 Baso % (Auto) 0.2 Lymph # (Auto) 1.2 [place] # (Auto) 1.8 H Eos # (Auto) 0.0 Baso # (Auto) 0.1 Abs Immat Gran (auto) 0.11 H Absolute Neuts (auto) 23.6 H Absolute Nucleated RBC 0.000 Nucleated RBC % (auto) 0.0 Smear Tech's Comments VERIFIED Anion Gap Estim Creat Clear Calc Estimated GFR Random Glucose Lactic Acid 1.1 Calcium Total Bilirubin AST ALT Alkaline Phosphatase Total Protein Albumin Urine Color YELLOW Urine Appearance HAZY Urine pH 6.0 Ur Specific [place] >= 1.030 H Urine Protein 1+ H Urine Glucose (UA) NEG Urine Ketones 40 Urine Blood 3+ H Urine Nitrite NEG Ur Leukocyte Esterase 1+ H Urine RBC 5-9 H Urine WBC 30-49 H Ur Squamous Epith Cells 2+ Urine Bacteria TRACE COVID-19 ([facility]) COVID-19 Clin Com 07/08/21 07/08/21 21:43 22:00 MCV MCH MCHC RDW Plt Count MPV Immature Gran % (Auto) Neut % (Auto) Lymph % (Auto) [place] % (Auto) Eos % (Auto) Baso % (Auto) Lymph # (Auto) [place] # (Auto) Eos # (Auto) Baso # (Auto) Abs Immat Gran (auto) Absolute Neuts (auto) Absolute Nucleated RBC Nucleated RBC % (auto) Smear Tech's Comments Anion Gap 14 Estim Creat Clear Calc 58.5 Estimated GFR 49 Random Glucose 116 H Lactic Acid Calcium 8.7 D Total Bilirubin 0.5 AST 15 ALT 9 Alkaline Phosphatase 63 D Total Protein 6.2 L Albumin 3.5 Urine Color Urine Appearance Urine pH Ur Specific [place] Urine Protein Urine Glucose (UA) Urine Ketones Urine Blood Urine Nitrite Ur Leukocyte Esterase Urine RBC Urine WBC Ur Squamous Epith Cells Urine Bacteria COVID-19 ([facility]) Negative COVID-19 Clin Com See Note Assessment and Plan (1) Pyelonephritis: Status: Acute (2) Kidney stones: Status: Acute Plan 25-year-old female with history of kidney stones presents to the hospital with complaints of worsening right flank pain as well as found to have pyelonephritis # pyelonephritis - secondary to kidney stone at UPJ - iv abx - follow cultures # Obstructing UPJ stone - URology consulted - IV fluids # Asthma contorlled DVT ppx: SCDs in anticipation of urological intervention Quality Stroke Does the patient have a stroke diagnosis?: No VTE Prior VTE?: No VTE Risk Level:: Medical - moderate - high VTE Device Contraindication: N/A - Device Ordered VTE Drug Contraindication: Treatment Not Indicated
[2021-07-09] MEDS: Lactated Ringers 1,000 ML 100 ML IVCONT ×2 (04:51→16:58)
--- NOTE | 2021-07-09 06:50 | PHA.MEDREC ---
Pharmacy Consult ? Medication Reconciliation Pharmacy has reviewed the medication reconciliation completed by Danna. Patient here on 07/07 & 07/08. Prescripition are from these visits and on discharge summary. Thania Grier, JulissaD
--- NOTE | 2021-07-09 07:11 | PC.NURSE ---
Received patient to overflow bed 1 - Patient resting - no distress. Vitals stable. Patient reports pain under control.
[2021-07-09] MEDS: Morphine Sulfate 4 MG/ML CARTRIDGE IVPUSH ×2 (07:55→22:18)
[2021-07-09] MEDS: Tamsulosin HCL 0.4 MG CAPSULE PO (07:55)
[2021-07-09] MEDS: predniSONE 20 MG TABLET PO (07:55)
[2021-07-09] MEDS: ondansetron HCL 4 MG/2 ML VIAL IVPUSH (07:55)
[2021-07-09 09:44] LABS: UPreg QC Valid YES; Urine Pregnancy NEGATIVE (NEGATIVE)
--- NOTE | 2021-07-09 10:13 | PM.UROCN ---
History of Present Illness Consult details Consult date: 07/09/21 Narrative: Shira is a pleasant 25-year-old female Re presentation to the emergency room within 36 hours persistent right flank pain Three day history of flank pain and had been non responsive to pain medication antibiotics Unable to take orals which led to her Re presentation Creatinine 1.35, WBC 26.7 Urine culture positive for pansensitive E coli Right kidney revealed multiple calculi in the collecting system with conglomerate of stones in interpolar area measuring 0.6 cm and mild hydronephrosis secondary to partial obstruction of ureteropelvic junction by 0.7 cm conglomerate of stones Discussed findings and clinical presentation with patient She has had prior stones but no prior intervention At this point given her urinary tract infection and likely pyelonephritis we will place a stent and treat for 2 weeks as outpatient before definitive stone procedure performed Review of Systems Constitutional: Constitutional: Reports as per HPI and Reports no additional constitutional complaints Cardiovascular: Cardiovascular: Reports as per HPI and Reports no additional cardiovascular complaints Respiratory: Respiratory: Reports as per HPI and Reports no additional respiratory complaints Gastrointestinal: Gastrointestinal: Reports as per HPI and Reports no additional gastrointestinal complaints Genitourinary: Genitourinary: Reports as per HPI Musculoskeletal: Musculoskeletal: Reports no additional musculoskeletal complaints and Reports as per HPI Neurologic: Reports system reviewed and no additional complaints, except as documented and Reports as per HPI [facility] Past Medical History Medical History (Updated 07/08/21 @ 22:04 by Los Price MD) Asthma Kidney stones Family History Family History (Updated 07/09/21 @ 06:59 by Naomi Rushing MD) Mother Diabetes Surgical History Surgical History (Updated 07/09/21 @ 07:00 by Naomi Rushing MD) H/O lithotripsy Social History Social History Alcohol intake: never Patient Tobacco Use Status: Never used Tobacco Advance Directives: No Advance Directives Information Provided: No Patient : No Sexual orientation: Straight/Heterosexual Gender identity: Female Meds Allergies Allergy/AdvReac Type Severity Reaction Status Date / Time amoxicillin [Amoxicillin] Allergy Severe ANAPHYLAXIS Verified 07/08/21 02:16 Active Medications: Current Medications Acetaminophen (Acetaminophen 325 Mg Tablet) 650 mg PO Q6H PRN PRN Reason: Pain, Mild (Pain Scale 1-3) Docusate Sodium (Docusate Sodium 100 Mg Capsule) 100 mg PO DAILY PRN PRN Reason: Constipation Levofloxacin (Levaquin) 750 mg in 150 mls @ 100 mls/hr IV Q24H [facility] Lactated Ringer's (Lr) 1,000 mls @ 100 mls/hr IVCONT .Q10H [facility] Last Admin: 07/09/21 04:51 Dose: 100 mls/hr Documented by: Morphine Sulfate (Morphine Sulfate 4 Mg/Ml Cartridge) 4 mg IVPUSH Q4H PRN; Protocol PRN Reason: Pain, Severe (Pain Scale 7-10) Last Admin: 07/09/21 07:55 Dose: 4 mg Documented by: Ondansetron HCl (Ondansetron Hcl 4 Mg/2 Ml Vial) 4 mg IVPUSH Q8H PRN PRN Reason: Nausea and Vomiting Last Admin: 07/09/21 07:55 Dose: 4 mg Documented by: Prednisone (Prednisone 20 Mg Tablet) 20 mg PO DAILY [facility] Last Admin: 07/09/21 07:55 Dose: 20 mg Documented by: Sodium Chloride (0.9 % Sodium Chloride Flush 3 Ml Syringe) 3 ml IVFLUSH QSHIFT [facility] Last Admin: 07/09/21 08:29 Dose: Not Given Documented by: Tamsulosin HCl (Tamsulosin Hcl 0.4 Mg Capsule) 0.4 mg PO DAILY [facility] Last Admin: 07/09/21 07:55 Dose: 0.4 mg Documented by: Physical Exam Vital Signs: Vital Signs: Last Vital Signs Temp 98.8 F 07/09/21 05:03 Pulse 101 H 07/09/21 05:03 Resp 18 07/09/21 05:03 BP 96/63 07/09/21 05:03 Pulse Ox 100 07/09/21 05:03 BMI result Body Mass Index 32.2 Const: General: cooperative, healthy appearing, comfortable and no acute distress Orientation/consciousness: patient oriented x3 HENMT: Face and sinus: Yes normal facial exam Mouth: moist mucous membranes Neck: Neck: Yes normal visual inspection, Yes full ROM and Yes trachea midline Chest: Chest palpation & inspection: normal inspection of the chest Resp: Effort & Inspection: normal respiratory effort, able to speak in complete sentences and no respiratory distress GI: Inspection: Yes normal to inspection Back/Spine/Pelvis: Cervical Spine: normal cervical lordosis Thoracic/Lumbar Spine: thoracic and lumbar spine normal to inspection Skin: General skin exam: no rashes or lesions noted Neuro: General: patient oriented x3, tone normal and moves all extremities Extrem: General: Yes normal to inspection and Yes capillary refill normal Results Labs Result diagrams: 07/08/21 21:01 07/08/21 21:43 Labs: Abnormal lab results 07/08/21 07/08/21 07/08/21 Range/Units 19:17 21:01 21:43 WBC 26.7 H (4.8-10.8) X10*3/uL Neut % (Auto) 88.3 H (45-73) % Lymph % (Auto) 4.3 L (20-40) % [place] # (Auto) 1.8 H (0.1-1.2) X10*3/uL Abs Immat Gran (auto) 0.11 H (0.00-0.03) X10*3/uL Absolute Neuts (auto) 23.6 H (2.0-8.3) x10*3/uL Carbon Dioxide 19 L (22-29) mmol/L Random Glucose 116 H (60-115) mg/dL Total Protein 6.2 L (6.5-8.0) g/dL Ur Specific [place] >= 1.030 H (1.005-1.025) Urine Protein 1+ H (NEG-TRACE) MG/DL Urine Blood 3+ H (NEG) Ur Leukocyte Esterase 1+ H (NEG) Urine RBC 5-9 H (0) /HPF Urine WBC 30-49 H (0-4) /HPF Short CBC 07/08/21 Range/Units 21:01 WBC 26.7 H (4.8-10.8) X10*3/uL Hgb 13.6 (12.0-16.0) g/dl Hct 41.2 (37.0-47.0) % Plt Count 360 (160-400) X10*3/uL BMP 07/08/21 21:43 Sodium 137 Potassium 3.7 Chloride 108 Carbon Dioxide 19 L BUN 16 Creatinine 1.35 Calcium 8.7 D Liver Function 07/08/21 Range/Units 21:43 Total Bilirubin 0.5 (0.0-1.0) mg/dL AST 15 (5-31) U/L ALT 9 (0-31) U/L Alkaline Phosphatase 63 D (39-117) U/L Albumin 3.5 (3.5-5.0) g/dL Urine 07/08/21 07/09/21 Range/Units 19:17 09:35 Urine Color YELLOW Urine Appearance HAZY Urine pH 6.0 (5.0-8.0) Ur Specific [place] >= 1.030 H (1.005-1.025) Urine Protein 1+ H (NEG-TRACE) MG/DL Urine Glucose (UA) NEG (NEG) MG/DL Urine Test NEGATIVE (NEGATIVE) All other labs normal. Assessment and Plan (1) Pyelonephritis: Status: Acute (2) Kidney stones: Status: Acute Plan Risks, benefits and alternatives to therapy were discussed. These include but are not limited to infection, bleeding, damage to local organs and tissues, need for further interventions. Anesthetic risks regarding cardiac arrhythmia, blood clots, and potential mortality were discussed. The patient understands the typical recovery time and the outpatient nature of the procedure. After consideration of these risks the patient gives full informed consent and they wish to move ahead with the procedure. cystoscopy, right retrograde, right stent placement Procedures Date of Service Date of Service: 07/09/21
--- NOTE | 2021-07-09 10:30 | MHC.CM.PN ---
Addendum entered by Erica Pollack 07/09/21 10:33: REQUEST SENT TO [facility] TO DETERMINE IF ANY PRIMARY CARE PROVIDERS ON CAMPUS TAKE PTS INSURANCE Original Note: PT REPORTS SHE LIVES WITH HER MOTHER AND TWO SMALL CHILDREN SHE REPORTS SHE IS FULLY INDEPENDENT WITH CARE AND USES NO DME OR HOME SERVICES PT SAYS SHE DOES NOT HAVE A PCP AT THIS TIME, SHE REPORTS IT HAS BEEN DIFFICULT TO FIND ONE THAT TAKES HER INSURANCE PT DECLINES TO COMPLETE A HCP AT THIS TIME PT REPORTS SHE IS VACCINATED AGAINST COVID-19 WITH MODERNA X 2. CURRENT DC PLAN IS HOME WITH NO SERVICES FAMILY TO TRANSPORT
--- NOTE | 2021-07-09 10:57 | PC.NURSE ---
Pt c/o pain and nausea at the beginning of this RNs shift. Pt provided with PRN pain meds and nausea meds, and medicated per MAR. per OR nurse pt to go to have stent placed around 1:30-2:00. Pt resting in the hospital bed. PRNs provided good relief per pt. Call candelario and belongings within reach. awaiting further orders for stent placement.
[2021-07-09 11:29] LABS: Basophils Percent Auto 0.2 % (0-2); Eosinophils Percent Auto 0.1 % (0-4); Hemoglobin 12.4 g/dl (12.0-16.0); Imm Gran Pct Auto 0.5 % (0.0-0.4); Lymphocytes Absolute Auto 0.7 X10*3/uL (1.2-4.9); Lymphocytes Percent Auto 3.5 % (20-40); MANUAL DIFF FLAG SCAN; Mean Corpuscular HGB Conc 33.5 g/dl (31.0-35.0); Mean Corpuscular Hemoglobin 28.6 pg (27.0-33.0); Mean Corpuscular Volume 85.3 fL (80.0-98.0); Mean Platelet Volume 11.4 fL (9.4-12.3); Monocytes Absolute Auto 1.9 X10*3/uL (0.1-1.2); Neutrophils Absolute Auto 15.8 x10*3/uL (2.0-8.3); Neutrophils Percent Auto 85.7 % (45-73); Platelet Count 259 X10*3/uL (160-400); Red Blood Count 4.34 X10*6/uL (4.20-5.50); Red Cell Distribution Width 13.2 % (11.0-16.0); SCAN SMEAR FLAG 1; White Blood Count 18.4 X10*3/uL (4.8-10.8)
[2021-07-09 11:45] LABS: Anion Gap 13 (12-20); Blood Urea Nitrogen 17 mg/dL (9-16); Calcium 9.4 mg/dL (8.4-10.2); Carbon Dioxide 23 mmol/L (22-29); Chloride 106 mmol/L (96-108); Creatinine Clr Calc Pharmacy 59.4; Estimated Glomerular Filt Rate 49; Glucose Random 103 mg/dL (60-115); Potassium 3.8 mmol/L (3.3-5.1); Sodium 138 mmol/L (135-145)
[2021-07-09 12:10] LABS: SLIDE REVIEW VERIFIED
--- NOTE | 2021-07-09 12:46 | PM.EVENT ---
Event Note Date of Service: 07/09/21 Event Note: Patient already seen by hospitalist seem this morning Patient says abdominal pain improving, but still her right flank pain Physical exam: Unchanged from H&P Assessment and plan: Coordinated in H&P Continue IV antibiotics, urology is planning stent placement today.
--- NOTE | 2021-07-09 13:51 | P.CONAN_ITS ---
HPI - Anesthesia Eval Consult details Narrative: 25 F for cystoscopy and stent placement PMFSH Active Problems Active Problems: All Active Problems (Updated 07/08/21 @ 22:04 by Los Price MD) Pyelonephritis (Acute) Kidney stones (Acute) Asthma (Acute) Past Medical History Medical History (Updated 07/08/21 @ 22:04 by Los Price MD) Asthma Kidney stones Family History Family History (Updated 07/09/21 @ 06:59 by Naomi Rushing MD) Mother Diabetes Family history of problems with anesthesia: Yes (Delayed emergence , mother ) Surgical History Surgical History (Updated 07/09/21 @ 07:00 by Naomi Rusihng MD) H/O lithotripsy History of Problems with Anesthesia: No Social History Social History Alcohol intake: never Patient Tobacco Use Status: Never used Tobacco service: No Current occupational status: unemployed Sexual orientation: Straight/Heterosexual Gender identity: Female Meds Allergies Allergy/AdvReac Type Severity Reaction Status Date / Time amoxicillin [Amoxicillin] Allergy Severe ANAPHYLAXIS Verified 07/08/21 02:16 Active Medications: Current Medications Acetaminophen (Acetaminophen 325 Mg Tablet) 650 mg PO Q6H PRN PRN Reason: Pain, Mild (Pain Scale 1-3) Docusate Sodium (Docusate Sodium 100 Mg Capsule) 100 mg PO DAILY PRN PRN Reason: Constipation Levofloxacin (Levaquin) 750 mg in 150 mls @ 100 mls/hr IV Q24H SULY Lactated Ringer's (Lr) 1,000 mls @ 100 mls/hr IVCONT .Q10H SULY Last Admin: 07/09/21 04:51 Dose: 100 mls/hr Documented by: Morphine Sulfate (Morphine Sulfate 4 Mg/Ml Cartridge) 4 mg IVPUSH Q4H PRN; Protocol PRN Reason: Pain, Severe (Pain Scale 7-10) Last Admin: 07/09/21 07:55 Dose: 4 mg Documented by: Ondansetron HCl (Ondansetron Hcl 4 Mg/2 Ml Vial) 4 mg IVPUSH Q8H PRN PRN Reason: Nausea and Vomiting Last Admin: 07/09/21 07:55 Dose: 4 mg Documented by: Prednisone (Prednisone 20 Mg Tablet) 20 mg PO DAILY [facility] Last Admin: 07/09/21 07:55 Dose: 20 mg Documented by: Sodium Chloride (0.9 % Sodium Chloride Flush 3 Ml Syringe) 3 ml IVFLUSH QSHIFT [facility] Last Admin: 07/09/21 08:29 Dose: Not Given Documented by: Tamsulosin HCl (Tamsulosin Hcl 0.4 Mg Capsule) 0.4 mg PO DAILY [facility] Last Admin: 07/09/21 07:55 Dose: 0.4 mg Documented by: Exam Exam Date and Time: July 09, 2021 1351 Height,Weight and Vital Signs: Height 5 ft Weight 74.8 kg Last Vital Signs Temp 97.5 F 07/09/21 11:51 Pulse 95 07/09/21 11:51 Resp 16 07/09/21 11:51 BP 104/69 07/09/21 11:51 Pulse Ox 97 07/09/21 11:51 Pertinent Lab Results Pertinent Lab Results: Laboratory Tests 07/08/21 07/08/21 07/08/21 19:17 21:01 21:01 WBC 26.7 H RBC 4.87 Hgb 13.6 Hct 41.2 MCV 84.6 MCH 27.9 MCHC 33.0 RDW 13.0 Plt Count 360 MPV 10.9 Immature Gran % (Auto) 0.4 Neut % (Auto) 88.3 H Lymph % (Auto) 4.3 L [place] % (Auto) 6.8 Eos % (Auto) 0.0 Baso % (Auto) 0.2 Lymph # (Auto) 1.2 [place] # (Auto) 1.8 H Eos # (Auto) 0.0 Baso # (Auto) 0.1 Abs Immat Gran (auto) 0.11 H Absolute Neuts (auto) 23.6 H Absolute Nucleated RBC 0.000 Nucleated RBC % (auto) 0.0 Smear Tech's Comments VERIFIED Sodium Potassium Chloride Carbon Dioxide Anion Gap BUN Creatinine Estim Creat Clear Calc Estimated GFR Random Glucose Lactic Acid 1.1 Calcium Total Bilirubin AST ALT Alkaline Phosphatase Total Protein Albumin Urine Color YELLOW Urine Appearance HAZY Urine pH 6.0 Ur Specific [place] >= 1.030 H Urine Protein 1+ H Urine Glucose (UA) NEG Urine Ketones 40 Urine Blood 3+ H Urine Nitrite NEG Ur Leukocyte Esterase 1+ H Urine RBC 5-9 H Urine WBC 30-49 H Ur Squamous Epith Cells 2+ Urine Bacteria TRACE Urine Test COVID-19 ([facility]) COVID-19 Clin Com 07/08/21 07/08/21 07/09/21 21:43 22:00 09:35 WBC RBC Hgb Hct MCV MCH MCHC RDW Plt Count MPV Immature Gran % (Auto) Neut % (Auto) Lymph % (Auto) [place] % (Auto) Eos % (Auto) Baso % (Auto) Lymph # (Auto) [place] # (Auto) Eos # (Auto) Baso # (Auto) Abs Immat Gran (auto) Absolute Neuts (auto) Absolute Nucleated RBC Nucleated RBC % (auto) Smear Tech's Comments Sodium 137 Potassium 3.7 Chloride 108 Carbon Dioxide 19 L Anion Gap 14 BUN 16 Creatinine 1.35 Estim Creat Clear Calc 58.5 Estimated GFR 49 Random Glucose 116 H Lactic Acid Calcium 8.7 D Total Bilirubin 0.5 AST 15 ALT 9 Alkaline Phosphatase 63 D Total Protein 6.2 L Albumin 3.5 Urine Color Urine Appearance Urine pH Ur Specific [place] Urine Protein Urine Glucose (UA) Urine Ketones Urine Blood Urine Nitrite Ur Leukocyte Esterase Urine RBC Urine WBC Ur Squamous Epith Cells Urine Bacteria Urine Test NEGATIVE COVID-19 ([facility]) Negative COVID-19 Clin Com See Note 07/09/21 07/09/21 10:27 10:27 WBC 18.4 H RBC 4.34 Hgb 12.4 Hct 37.0 MCV 85.3 MCH 28.6 MCHC 33.5 RDW 13.2 Plt Count 259 D MPV 11.4 Immature Gran % (Auto) 0.5 H Neut % (Auto) 85.7 H Lymph % (Auto) 3.5 L [place] % (Auto) 10.0 Eos % (Auto) 0.1 Baso % (Auto) 0.2 Lymph # (Auto) 0.7 L [place] # (Auto) 1.9 H Eos # (Auto) 0.0 Baso # (Auto) 0.0 Abs Immat Gran (auto) 0.10 H Absolute Neuts (auto) 15.8 H Absolute Nucleated RBC 0.000 Nucleated RBC % (auto) 0.0 Smear Tech's Comments VERIFIED Sodium 138 Potassium 3.8 Chloride 106 Carbon Dioxide 23 Anion Gap 13 BUN 17 H Creatinine 1.33 Estim Creat Clear Calc 59.4 Estimated GFR 49 Random Glucose 103 Lactic Acid Calcium 9.4 D Total Bilirubin AST ALT Alkaline Phosphatase Total Protein Albumin Urine Color Urine Appearance Urine pH Ur Specific [place] Urine Protein Urine Glucose (UA) Urine Ketones Urine Blood Urine Nitrite Ur Leukocyte Esterase Urine RBC Urine WBC Ur Squamous Epith Cells Urine Bacteria Urine Test COVID-19 ([facility]) COVID-19 Clin Com Airway Mallampati Class: II TM Dist: >3cm Neck ROM: Full Loose/Missing/Broken Teeth: Yes Heart: rrr Lungs: bl breath sounds Assessment and Plan Assessment Anesthesia Assessment: Anesthesia Plan Discussed Final Anesthetic Review Family History of Problems with Anesthesia: Yes (Delayed emergence , mother ) History of Problems with Anesthesia: No NPO: Yes ASA Class: II and Emergency Final Preanesthetic Review: Meds/Allgs Chart Reviewed, Consent Obtained/Reviewed and Anes Risks/Benef Reviewed Patient Risk: Intermediate Procedure Risk: Intermediate Anesthetic Plan Anesthetic Plan: GA Disposition: Inp. Admit - Standard Bed
--- NOTE | 2021-07-09 14:36 | MHC.SHP ---
Pre-Procedural Eval Section A Date of Service: 07/09/21 The patient is an INPATIENT: No Changes since office visit: No Cold of Flu in the past 2 weeks, No New Medical Problems, No Changes in Medication and No Patient answered all questions The History & Physical has been completed within 30 days and I have reviewed it.: Yes Section B Chief Complaint: uti, obstructing stone Allergies: Allergies Allergy/AdvReac Type Severity Reaction Status Date / Time amoxicillin [Amoxicillin] Allergy Severe ANAPHYLAXIS Verified 07/08/21 02:16 Plan Diagnosis/Plan: Unchanged ( cystoscopy, right retrograde, right stent placement) I have reviewed the history and physical and performed a pertinent physical examination on my patient. No changes have occurred unless specified.
--- NOTE | 2021-07-09 15:12 | W.PM.OPN ---
Operative Note Operative Note Date of Service: 07/09/21 Narrative: PreOperative Diagnosis: right proximal UPJ obstructing stone with hydronephrosis Post Operative Diagnosis: above Procedure: cystoscopy, right retrograde, aspiration right renal pelvis, right stent placement Surgeon: Dr Bernard Larios Anesthesia: per Anesthesia protocol Indications for procedure: 25-year-old female had presented with persistent right flank pain and nausea and vomiting. CT scan with 6 mm right UPJ stone and hydronephrosis. Recommend intervention with stent placement. Elevated white count. Question of UTI. Procedure: After informed consent was verified the patient was brought to the operating room and placed in a supine position. Anesthesia was administered per protocol. the patient was placed in modified dorsal lithotomy position and prepped and draped in sterile fashion. Safety pause time-out performed. Cystoscopy performed. Imaging performed. Stone seen at UPJ. Wire placed. Ureteric catheter advanced over the wire into the renal pelvis. Aspiration performed and urine will be sent for culture. Retrograde examination performed to show renal pelvis. Wire placed back into the renal pelvis. Ureteric catheter removed. Six [place] by 22 cm double-J stent placed with good coil Seen in renal pelvis and bladder. Bladder empty. Patient tolerated procedure well was extubated in operating room transferred in stable condition to the recovery area. Pathology: none Drains: 6 Indonesian by 22 cm stent
--- NOTE | 2021-07-09 15:39 | PC.NURSE ---
per PACU, pt to be discharged from the pacu home. pt dc'd from [facility] at this time.
[2021-07-09] MEDS: Acetaminophen 325 MG TABLET 650 MG PO (15:58)
[2021-07-09] MEDS: Phenazopyridine HCL 100 MG TABLET PO (15:59)
[2021-07-09] MEDS: levoFLOXacin/D5W 750 MG/150 ML PIGGYBACK 100 MG IV (22:18)
[2021-07-10 05:48] VITALS: BP 102/69; PULSE 73; RESP 18; O2SAT 98
--- NOTE | 2021-07-10 08:35 | PC.NURSE ---
call placed to PACU regarding pt being back in the overflow unit, she was supposed to be d/c following her procedure. PACU reported that they do not d/c from their unit
--- NOTE | 2021-07-10 08:40 | PM.DS ---
DS: Providers Provider Date of Service: 07/10/21 Date of admission: 07/09/21 02:41 Primary care physician: None Physician Consults: 07/09/21 02:40 Consult to Urology Routine Consulting Provider: Bernard Larios Reason for consultation: obstructing stone DS: Diagnosis Discharge Diagnosis (1) Pyelonephritis: Status: Acute (2) Kidney stones: Status: Acute DS: Summary Hospital Course Hospital Course: ?25-year-old female with past medical history of? controlled asthma presents to the hospital with complaints of right flank pain.? Patient presented hospital [facility], found to have UPJ stone, sent home with levofloxacin but reports that she had continued nausea and vomiting and as well as worsening right flank pain and therefore came back to the hospital. ? She denies any fever, no chest pain, no shortness of breath, no urinary symptoms and no lower extremity edema.? Patient denies any dysuria, no frequency. ?patient reports history of kidney stones treated with? lithotripsy in the past On arrival to the ED patient hemodynamically stable? with heart rate of 116 otherwise unremarkable Labs are significant for WBC count of 26.7, UA positive for leukocyte Estrace and WBC ?CT of the abdomen done on 07/07 showed right nephrolithiasis with multiple calculi as well as partially obstructing conglomerate of stones in the UPJ ?patient's? started on IV antibiotics and will be admitted for further management. Hospital course: Patient came with pyelonephritis and renal stone: Seen by Urology and renal stent was placed , urine culture is pansensitive E coli: Urology precribed p.o. antibiotic upon discharge and follow-up with outpatient with Urology in 2 weeks. Patient currently asymptomatic, blood culture negative at 24 hours, culture sent why urologist are still pending Discussed with Urology patient is asymptomatic and urology recommended discharge with p.o. antibiotics. Above management discussed with the patient in detail length she understand and in agreement with the above plan, time spent 50 minutes and 50% time spent on counseling. Significant findings: As above. Procedures performed: None. Treatment and response: As above. Complications: None. Time Spent with Patient Time attestation: Total time spent providing and/or coordinating discharge services: Discharge coordination time: Greater than 30 minutes Quality: Stroke Does the patient have a stroke diagnosis?: No Physical Exam Vital Signs: Vital Signs: Last Vital Signs Temp 98.1 F 07/09/21 16:15 Pulse 73 07/10/21 05:48 Resp 18 07/10/21 05:48 BP 102/69 07/10/21 05:48 Pulse Ox 98 07/10/21 05:48 BMI result Body Mass Index 32.2 Appearance: Alert.? Oriented X3.? not in distress.? Eyes: Pupils equal, round and reactive to light.? Sclera nonicteric.? ENT: Pharynx normal.? Moist mucous membranes. cvs: rrr, [id number] , no murmur res: clear to auscultation ,no rhonchii or wheezing abd: no rebound or guarding ,nt, bs present. ext pulses present , no cyanosis ,Gait well balanced well coordinated. neuro: axo3 , nonfocal. DS: Data Data Completed and Pending Labs on day of discharge: Laboratory Results - last 24 hr 07/09/21 07/09/21 07/09/21 09:35 10:27 10:27 WBC 18.4 H RBC 4.34 Hgb 12.4 Hct 37.0 MCV 85.3 MCH 28.6 MCHC 33.5 RDW 13.2 Plt Count 259 D MPV 11.4 Immature Gran % (Auto) 0.5 H Neut % (Auto) 85.7 H Lymph % (Auto) 3.5 L [place] % (Auto) 10.0 Eos % (Auto) 0.1 Baso % (Auto) 0.2 Lymph # (Auto) 0.7 L [place] # (Auto) 1.9 H Eos # (Auto) 0.0 Baso # (Auto) 0.0 Abs Immat Gran (auto) 0.10 H Absolute Neuts (auto) 15.8 H Absolute Nucleated RBC 0.000 Nucleated RBC % (auto) 0.0 Smear Tech's Comments VERIFIED Sodium 138 Potassium 3.8 Chloride 106 Carbon Dioxide 23 Anion Gap 13 BUN 17 H Creatinine 1.33 Estim Creat Clear Calc 59.4 Estimated GFR 49 Random Glucose 103 Calcium 9.4 D Urine Test NEGATIVE Preliminary micro results at discharge 07/08/21 21:11 Blood Culture - Preliminary Blood - Venous No growth after 24 hours. 07/08/21 21:11 Blood Culture - Preliminary Blood - Venous No growth after 24 hours. Additional Comments Additional comments: Blood Culture (Second) Preliminary 07/09/21-2314 No growth after 24 hours. 07/09/21-799 Organism 1 Escherichia coli Quant > 100,000 cfu/mL E coli M.I.C. RX --------- --- Ampicillin 4 S Extended Spectrum Beta Lactam NEG - Ceftriaxone <=1 S Gentamicin <=1 S Levofloxacin <=0.12 S Nitrofurantoin <=16 S Trimethoprim/Sulfamethoxazole <=20 S urine culture sent by urology pending Discharge Plan Discharge Patient Disposition: Home, Self-Care Discharge Diagnosis: UPJ stone Referrals: Physician,None [Primary Care Provider] - 1 Week (Dr Diehl's office takes your insurance in the area. ) Discharge Medications: New sulfamethoxazole-trimethoprim [Bactrim DS] 800-160 mg tablet 1 tab PO BID 7 Days Qty: 14 0RF phenazopyridine [Pyridium] 100 mg tablet 100 mg PO TID PRN (Reason: spasm) 4 Days Qty: 12 0RF Continued levofloxacin 750 mg tablet 750 mg PO DAILY 7 Days Qty: 7 0RF ondansetron HCl 4 mg tablet 4 mg PO Q6H PRN (Reason: nausea and vomiting) Qty: 14 0RF ketorolac 10 mg tablet 10 mg PO TID PRN (Reason: pain) 5 Days Qty: 10 0RF Rx Instructions: Do not use this medication with Motrin/ibuprofen, only use Tylenol if needed prednisone 20 mg tablet 20 mg PO DAILY Qty: 3 0RF tamsulosin 0.4 mg capsule 0.4 mg PO DAILY Qty: 7 0RF Discharge Orders: Discharge Order (Routine); Ordered 07/09/21 Ordered By: Bernard Larios Diet: advance to usual diet Activity on Discharge: As tolerated Stand Alone Forms: Patient Portal Discharge page Care Plan Goals: Patient came with pyelonephritis and renal stone: Seen by Urology and renal stent was placed , urine culture is pansensitive E coli: Urology recommended p.o. antibiotic upon discharge and follow-up with outpatient with Urology in 2 weeks. Patient currently asymptomatic, blood culture negative at 24 hours, culture sent why urologist are still pending Discussed with Urology patient is asymptomatic and urology recommended discharge with p.o. antibiotics. Health Concerns: As above. Plan of Treatment: As above. Assessment: As above.1 Discharge Date/Time: 07/10/21 10:23
[2021-07-10] MEDS: Acetaminophen 325 MG TABLET 650 MG PO (08:51)
[2021-07-10 09:12] VITALS: BP 107/62; PULSE 72; RESP 16; O2SAT 99
--- NOTE | 2021-07-10 10:47 | HO.POSTANES ---
Post Anesthesia Evaluation Post Anesthesia Evaluation Vital Signs: Vital Signs Pulse Resp BP Pulse Ox 07/10/21 09:12 72 16 107/62 99 07/10/21 05:48 73 18 102/69 98 Anesthesia: General Mental Status: Awake Pain Control: Satisfactory Nausea/Vomiting: None Hydration: Adequate Anesthesia-Related Issues: No Anes. Related Issues
--- NOTE | 2021-07-10 12:34 | PM.EVENT ---
Event Note Date of Service: 07/10/21 Event Note: 25year old female, PMH of controlled Asthma . Patient with right proximal UPJ obstructing stone with hydronephrosis underwent cystoscopy, right stent placement on 06/08/2021. In the PACU patient had slightly lower blood pressure c which were close to her baseline, likely from anesthesia . Patient perfusing well and was back to her baseline blood pressures without any intervention .
== END 2021-07-10 10:23 | disposition home or self-care (01) | DRG 443 ==
LOC: HO.ED 22:10 → HO.EDOVER 07-09 02:46
PROVIDERS: Anesthesiology; Urology; Admitting Provider Internal Medicine; Emergency Provider Internal Medicine; Visit Provider Internal Medicine
PROC: 0T938ZZ Drainage of Right Kidney Pelvis, Via Natural or Artificial Opening Endoscopic (ICD-10-PCS; principal; 2021-07-09 16:50)
DX: N13.6 Pyonephrosis (principal); B96.20 Unspecified Escherichia coli [E. coli] as the cause of diseases classified elsewhere; J45.909 Unspecified asthma, uncomplicated; Z20.822 Contact with and (suspected) exposure to COVID-19; Z87.442 Personal history of urinary calculi; Z88.0 Allergy status to penicillin; Z79.899 Other long term (current) drug therapy
CPT/HCPCS: 36415; 80048; 80053; 81001; 81025; 83605; 85025; 87040; 87086; 87635; 96361; 96374; 96375; 99285; 99499; C1758; C1769; C2617; J1100; J1885; J1956; J2270; J2405; J3010; Q9967

== ENCOUNTER 2021-07-25 08:14 | Day surgery (SDC) | payer OTHER, SELFPAY ==
--- NOTE | 2021-07-23 12:49 | HO.ANESPROP2 ---
Documented by User: Chasity Piedra NP 07/23/21 12:51 HPI - Anesthesia Eval Consult details Narrative: 25yo F for Right Lithotripsy ESW with stent removal s/p cysto, stent 07/10/21 with GA-LMA 4 PMFSH Active Problems Active Problems: All Active Problems (Updated 07/08/21 @ 22:04 by Los Price MD) Pyelonephritis (Acute) Kidney stones (Acute) Asthma (Acute) Past Medical History Medical History Asthma Kidney stones Family History Family History Mother Diabetes Family history of problems with anesthesia: Yes (Delayed emergence , mother ) Surgical History Surgical History H/O lithotripsy History of Problems with Anesthesia: No Social History Social History Alcohol intake: never Patient Tobacco Use Status: Never used Tobacco Use of substances other than those prescribed or required for medical reasons: No Are you DNR?: No Advance Directives: No Advance Directives Information Provided: Yes How much weight loss: 2-13 pounds Patient : No (ucg neg) service: No Current occupational status: unemployed Sexual orientation: Straight/Heterosexual Gender identity: Female Meds Allergies Allergy/AdvReac Type Severity Reaction Status Date / Time amoxicillin [Amoxicillin] Allergy Severe ANAPHYLAXIS Verified 07/08/21 02:16 Exam Exam Date and Time: July 23, 2021 1250 Pertinent Lab Results Pertinent Lab Results: Laboratory Tests 07/09/21 07/09/21 10:27 10:27 WBC 18.4 H Hgb 12.4 Hct 37.0 Plt Count 259 D Sodium 138 Potassium 3.8 Chloride 106 Carbon Dioxide 23 BUN 17 H Creatinine 1.33 Assessment and Plan Assessment Anesthesia Assessment: Chart Reviewed Final Anesthetic Review Family History of Problems with Anesthesia: Yes (Delayed emergence , mother ) History of Problems with Anesthesia: No Documented by User: Ni Hall MD 07/25/21 10:02 PMFSH Past Medical History Medical History Asthma Kidney stones Family History Family History Mother Diabetes Surgical History Surgical History H/O lithotripsy Social History Social History Alcohol intake: never Patient Tobacco Use Status: Never used Tobacco Use of substances other than those prescribed or required for medical reasons: No Are you DNR?: No Advance Directives: No Advance Directives Information Provided: Yes How much weight loss: 2-13 pounds Patient : No (ucg neg) service: No Current occupational status: unemployed Sexual orientation: Straight/Heterosexual Gender identity: Female Meds Allergies Allergy/AdvReac Type Severity Reaction Status Date / Time amoxicillin [Amoxicillin] Allergy Severe ANAPHYLAXIS Verified 07/08/21 02:16 Exam Airway Mallampati Class: II TM Dist: >3cm Neck ROM: Full Loose/Missing/Broken Teeth: No Heart: RRR Lungs: CTA Assessment and Plan Assessment Anesthesia Assessment: Anesthesia Plan Discussed Final Anesthetic Review NPO: Yes ASA Class: II Final Preanesthetic Review: Meds/Allgs Chart Reviewed, Consent Obtained/Reviewed and Anes Risks/Benef Reviewed Patient Risk: Low Procedure Risk: Low Anesthetic Plan Anesthetic Plan: MAC: Disposition: Standard PACU
--- NOTE | ~2021-07-25 | XR_ITS ---
EXAMINATION: XR ABDOMEN KUB CLINICAL INDICATION: Right renal stone. COMPARISON: July 07, 2021 TECHNIQUE: AP view of the abdomen. FINDINGS: The bowel gas pattern is normal with no evidence of ileus or obstruction. The bones appear unremarkable. There is now noted to be a right ureteral stent in place. Overlying the region of the mid to lower pole of the right kidney there is a 6 mm calcification present. No calcifications are identified along the paths of the right ureter. Intrauterine device is seen in place. Psoas margins are intact. XR/XR KUB IMPRESSION: Right ureteral catheter in place. 6 mm calcification seen in the region of the right renal collecting system.
[2021-07-25 08:45] VITALS: BP 117/60; PULSE 97; RESP 18; TEMP 36.4; O2SAT 96; BMI 31.2
[2021-07-25 08:57] LABS: UPreg QC Valid YES; Urine Pregnancy NEGATIVE (NEGATIVE)
[2021-07-25] MEDS: Acetaminophen 325 MG TABLET 650 MG PO (09:12)
[2021-07-25] MEDS: Lactated Ringers 1,000 ML 100 ML IVCONT (09:12)
--- NOTE | 2021-07-25 09:57 | MHC.SHP ---
Pre-Procedural Eval Section A Date of Service: 07/25/21 The patient is an INPATIENT: No Changes since office visit: No Cold of Flu in the past 2 weeks, No New Medical Problems, No Changes in Medication and No Patient answered all questions The History & Physical has been completed within 30 days and I have reviewed it.: No Section B Chief Complaint: kidney stone Details of Present Illness: right ESWL with cysto stent removal Relevant Family History (Specify if Yes): No Relevant Social History: None Present Medications: see Short Stay Collaborative assessment Medical History: No relevant PMH History of Previous Operations: Relevant previous surgery/procedure and date(s) Allergies: Allergies Allergy/AdvReac Type Severity Reaction Status Date / Time amoxicillin [Amoxicillin] Allergy Severe ANAPHYLAXIS Verified 07/08/21 02:16 Review of Systems Sugical H&P ROS: Negative: Constitution, Cardiovascular, Respiratory, Neurological, Psychiatric, Hem-Onc, Allergic/Immunologic, Gastrointestinal, Genitourinary, Musculoskeletal, Integumentary, Endocrine and Eyes/Ears/Nose/Throat Exam Surgical H&P Exam: Normal: HEENT, Normal: Heart, Normal: Lungs, Normal: Extremities, Normal: Abdomen, Normal: Skin and Normal: Neurological Plan Diagnosis/Plan: Unchanged (right ESWL with cysto stent removal) I have reviewed the history and physical and performed a pertinent physical examination on my patient. No changes have occurred unless specified.
--- NOTE | 2021-07-25 10:26 | W.PM.OPN ---
Operative Note Operative Note Date of Service: 07/25/21 Narrative: PreOperative Diagnosis: right Renal stones and indwelling stent Post Operative Diagnosis: right Renal stones and indwelling stent Procedure: right ESWL with cysto stent removal Surgeon: Dr Bernard Larios Anesthesia: mac/sedation Indications for procedure: The patient understands ESWL may be a staged procedure and subsequent intervention may be required based on imaging after ESWL. They also understand there is a risk of bleeding to the kidney, infection, damage to adjacent organs, and stone migration following the procedure. - Imaging 2 stones in right - 7mm mid pole and 5mm lower pole - treatment is of bigger stone Procedure: After informed consent was verified the patient was brought to the operating room and placed in a supine position. Anesthesia was performed per protocol. Safety pause time-out was performed. Imaging was displayed in the room and laterality confirmed. ESWL was performed. The 1st 500 shocks were performed at 60 hertz. These were performed with increasing power. Once maximum power was reached the rate was increased to 180 hertz. A total of 2500 shocks were given. Targetted imaging with ultrasound/fluoroscopy showed stone smudging suggestive of disintegration. The patient tolerated the procedure well and was transferred to the recovery area upon completion. Post procedure imaging will be organized. There was no evidence for flank discoloration.
[2021-07-25 10:56] VITALS: BP 96/57; PULSE 77; RESP 18; TEMP 36.2; O2SAT 100
[2021-07-25] MEDS: Phenazopyridine HCL 100 MG TABLET PO (11:05)
[2021-07-25 11:11] VITALS: BP 113/68; PULSE 97; RESP 16; O2SAT 99
== END 2021-07-25 11:45 | disposition home or self-care (01) ==
PROVIDERS: Nurse Practitioner; Visit Provider Urology
PROC: (CPT 50590; principal; 2021-07-25 10:00)
PROC: (CPT 52310; 2021-07-25 10:00)
DX: N20.0 Calculus of kidney (principal); Z87.442 Personal history of urinary calculi; Z96.0 Presence of urogenital implants; J45.909 Unspecified asthma, uncomplicated; Z88.1 Allergy status to other antibiotic agents; Z79.899 Other long term (current) drug therapy
CPT/HCPCS: 50590; 74018; 81025; J1956; J2250; J3010

== ENCOUNTER 2021-12-13 11:12 | Outpatient (REF) | payer OTHER, SELFPAY ==
--- NOTE | ~2021-12-13 | US_ITS ---
EXAMINATION: US RETROPERITONEAL LIMITED (RENAL ONLY) CLINICAL INFORMATION: Calculus of kidney. COMPARISON: XR abdomen KUB 07/25/2021 and 10/11/2015. CT abdomen without contrast 07/07/2021. US retroperitoneal limited (renal only) 12/11/2018 and 09/19/2015. TECHNIQUE: Real-time imaging of the kidneys. FINDINGS: RIGHT KIDNEY: 10.5 x 4.1 x 4.5 cm (SAG x AP x TRV). The kidney is normal in size, contour, and echogenicity. Renal cortical thickness is normal. There are clustered stones in the midpole measuring 9 x 4 x 5 mm. There is a 3 mm stone in the lower pole. There is mild fullness of the collecting system/hydronephrosis. No focal parenchymal lesion or perinephric collection. LEFT KIDNEY: 10.3 x 4.7 x 4.7 cm (SAG x AP x TRV). The kidney is normal in size, contour, and echogenicity. Renal cortical thickness is normal. There is a 3 mm echogenic density with twinkle artifact questionable for a stone in the lower pole. No focal parenchymal lesions or hydronephrosis. US/US renal BI IMPRESSION: Right renal stones and mild right hydronephrosis. Question small left renal stone.
== END 2021-12-13 11:13 | disposition home or self-care (01) ==
LOC: HO.US 11:12
PROVIDERS: Visit Provider Urology
DX: N20.0 Calculus of kidney (principal)
CPT/HCPCS: 76775

== ENCOUNTER 2022-01-02 14:09 | Outpatient (REF) | payer MEDICAID, SELFPAY ==
[2022-01-02 18:35] LABS: CT PCR NOT DETECTED (Not Detect.); NG PCR NOT DETECTED (Not Detect.)
== END 2022-01-02 14:10 | disposition home or self-care (01) ==
LOC: HO.LAB 14:09
PROVIDERS: Visit Provider Advanced Practice Midwife
DX: Z11.3 Encounter for screening for infections with a predominantly sexual mode of transmission (principal); Z20.2 Contact with and (suspected) exposure to infections with a predominantly sexual mode of transmission
CPT/HCPCS: 87491; 87591

== ENCOUNTER 2023-10-21 07:53 | Outpatient (AMB) | payer MEDICAID, SELFPAY ==
--- NOTE | 2023-10-21 08:13 | MHC.OFFVIS ---
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 Doing well with concerns: Unable to feel her IUD strings. She tries to eat healthy and stays active with exercise at work walking. Regular monthly menses. Uses ParaGard inserted, 2019 at [facility]. Currently is sexually active. She denies vaginal itching and irritation. STI screening offered; she declines. Denies family history of breast, ovarian or colon cancer. Last pap smear 2020, negative. 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 Sexual orientation: Straight/Heterosexual Gender identity: Female Female Reproductive History Menstrual Age of Menarche: 12 Duration of menses: 6-7 days Date of last menstrual period: 09/28/23 control method: copper IUCD (2019) Total pregnancies: 2 Full term: 2 Number of Living Children: 2 Date of last pap smear: 01/01/21 (negative) Review of Systems Const All systems reviewed & are unremarkable except as noted in HPI and below Reports as per HPI Eyes Reports no additional complaints ENT Reports no additional complaints Card Reports no additional complaints Resp Reports no additional complaints GI Reports as per HPI and Reports no additional complaints Reports as per HPI Musc Reports no additional complaints Skin/Breast Reports as per HPI Neuro Reports no additional complaints Psych Reports no additional complaints Endo Reports no additional complaints Quinten/Lymph Reports no additional complaints Aller/Immun Reports no additional complaints Physical Exam Vital Signs: Last Vital Signs BP 102/62 10/21/23 08:14 BMI result Body Mass Index 31.6 Const General: cooperative, healthy appearing, no acute distress, well developed and alert Orientation/consciousness: patient oriented x3 HEENT Head: Yes normal to inspection Eyes General: appearance normal, both eyes and all related structures Neck Neck: Yes normal visual inspection Thyroid: Thyroid normal Chest Chest palpation & inspection: normal inspection of the chest and other (no puckering, dimpling, peau de orange, retraction, discharge, masses) Breast/axilla inspection: normal inspection of the breasts Breast/axilla palpation: normal palpation of the breasts Resp Effort & Inspection: normal respiratory effort GI Inspection: Yes normal to inspection Palpation (GI): Soft to palpation Rectal Exam - Female: deferred General: Yes bladder normal to palpation External Female Exam: normal external appearance and normal appearance of the urethra Speculum Exam - Vagina: normal appearance of the vagina, normal palpation and normal vaginal discharge Speculum Exam - Cervix: normal appearance of the cervix, normal palpation and Other cervical findings present (IUD strings short, matted at os w/ trapped debris, trimmed debris off ) Bimanual exam- vagina & uterus: normal bimanual exam, normal palpation, uterine size normal, bladder normal to palpation, normal palpation and non-tender Bimanual Exam- Adnexa, other: no masses Skin General skin exam: no rashes or lesions noted Rashes: no rashes Neuro General: patient oriented x3 Cognition (Neuro): normal cognition Extrem General: Yes normal to inspection Psych Attitude: cooperative Thought process: Normal thought process present Assessment & Plan Assessment & Plan (1) Encounter for well woman exam with routine gynecological exam: Code(s): Z01.419 - Encounter for gynecological examination (general) (routine) without abnormal findings Category: Medical Plan Discussed: Current recommendations for pap smears per ASCCP guidelines. Breast awareness and periodic breast exams. Strings are trimmed shorter she may not be able to feel the strings at all at this point. Maintain a healthy lifestyle including a well balanced diet and routine exercise. Patient verbalizes understanding and agrees to the plan of care. She was given opportunity to ask questions and all questions were answered to the best of my ability. RTO in one year for annual client development director examination. This note is constructed using voice recognition software. While every effort has been made to ensure accuracy, engine cleaner errors may have been included. Orders: Orders Pap Smear Today Z12.4 - Encounter for screening for malignant neoplasm of cervix Coding Level of Care Code Est Pt Prev Care 18-39y(30210) Diagnoses Encounter for well woman exam with routine gynecological exam Z01.419
[2023-10-21 08:14] VITALS: BP 102/62; BMI 31.6
== END 2023-10-21 08:41 | disposition home or self-care (01) ==
PROVIDERS: PCP Internal Medicine; Visit Provider Advanced Practice Midwife
DX: Z01.419 Encounter for gynecological examination (general) (routine) without abnormal findings (principal)
CPT/HCPCS: 99395

== ENCOUNTER 2023-10-21 07:53 | Outpatient (REF) | payer MEDICAID, SELFPAY ==
[2023-10-27 14:28] LABS: HPV 16 RNA NOT DETECTED (NOT DETECTED); HPV mRNA E6/E7 rflx Detected (Not Detected)
== END 2023-10-21 07:54 | disposition home or self-care (01) ==
LOC: HO.LNP 07:53
PROVIDERS: PCP Internal Medicine; Visit Provider Advanced Practice Midwife
DX: Z01.419 Encounter for gynecological examination (general) (routine) without abnormal findings (principal)
CPT/HCPCS: 87624; 87625; 88142; 99395

== ENCOUNTER 2023-12-16 15:09 | Outpatient (AMB) | payer MEDICAID, SELFPAY ==
--- NOTE | 2023-12-16 15:40 | A.OFFVIS_ITS ---
Vital Signs 12/16/23 15:52 Height 5 ft Weight 160 lb 14.999 oz BMI 31.4 Intake Visit Reasons: Colposcopy Research Group Director Required: No Information Interpreted: non-clinical & clinical Animal Trainer Supervisor: Animal Trainer Supervisor Present (Claudia ZARAGOZA) Accompanied by: Self / Same As Patient Allergies amoxicillin [Amoxicillin] Allergy (Severe, Verified 12/16/23 15:52) ANAPHYLAXIS Is last menstrual period known: Yes Last menstrual period: 11/19/23 HPI Comments Details: Presenting referred from Carlene Post CNM regarding abnormal Pap smear showing ASC-H/ HPV E6/E7 positive, HPV 16/18/45 negative PFSH Medical History ASCUS with positive high risk HPV cervical Kidney stones Asthma Surgical History H/O lithotripsy Family History Mother Diabetes Hypertension Maternal Grandmother Hypertension Social History Alcohol intake: never Patient Tobacco Use Status: Never used Tobacco service: No Current occupational status: employed 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 We thoroughly discussed the procedure itself, including its details, alternatives, and all associated risks. This included but not limited to the following complications such as bleeding, infection, and injury to the vagina, bladder, and vessels, as well as the potential need for transfusion with all its associated risks. Subsequently, the patient sign the consent. Pap smear result: ASC-H/HPV E6/E7 positive, HPV 16/18/45 negative . Urine test in office = Negative Procedure: During the procedure, the following steps were performed: A speculum was inserted, and acetic acid was applied. Colposcopy was conducted, allowing visualization of the transformation zone. Acetowhite lesions were identified at the 6+7+11+12+1 o'clock position. Cervical biopsies were obtained from the 6+7+11+12+1 o'clock position, followed by an endocervical curettage (ECC). Vaginoscopy of the upper vagina revealed no evidence of aceto-white lesions. Hemostasis was achieved using Monsel solution, and the patient tolerated the procedure well. Post-Procedure Instructions: The patient was advised to promptly contact the office or the after hours answering service or go to the emergency room if experiencing a temperature exceeding 100.4?F, abdominal pain, nausea/vomiting, or bleeding. Additionally, the patient was instructed to abstain from vaginal intercourse and bathtub use. The patient confirmed understanding of these instructions. Discharge Instructions: The patient was instructed to schedule a follow-up appointment in 2 weeks for further evaluation and management. Please note that this note was generated using a voice recognition program, and errors may have occurred during snow maker. [id number] of cervix including upper vagina with biopsy and ECC Procedure code (CPT) selection complete Assessment & Plan Assessment & Plan (1) Pap smear cannot exclude high grade squamous intraepithelial lesion (ASC-H): Code(s): R87.610 - Atypical squamous cells of undetermined significance on cytologic smear of cervix (ASC-US) Category: Medical Plan: Discussed with the patient the result of her abnormal pap, its significance, risk of progression, persistence, and regression. the false positive/negative rate of a Pap smear as a screening test in detecting cervical cancer and the indication for a diagnostic test -colposcopy, biopsy, endocervical curettage. Colposcopy done, see procedure note. The patient verbalized understanding and agreed with the plan, all questions answered. Orders: Orders AMB Colposcopy Today R87.610 - Atypical squamous cells of undetermined significance on cytologic smear of cervix (ASC-US) Coding Level of Care Code Procedure Only Diagnoses Pap smear cannot exclude high grade squamous intraepithelial lesion (ASC-H) R87.610 CPT Codes Colposcopy - CPT: 10470-Srdmdlrav of cervix including upper vagina with biopsy and ECC ([id number])
[2023-12-16 15:52] VITALS: BMI 31.4
== END 2023-12-16 16:05 | disposition home or self-care (01) ==
LOC: HO.HWS 15:09
PROVIDERS: PCP Internal Medicine; Visit Provider Obstetrics & Gynecology
DX: Z32.02 Encounter for pregnancy test, result negative (principal); R87.610 Atypical squamous cells of undetermined significance on cytologic smear of cervix (ASC-US)
CPT/HCPCS: 57454

== ENCOUNTER 2023-12-16 15:09 | Outpatient (REF) | payer MEDICAID, SELFPAY | END 2023-12-16 15:10 | disposition home or self-care (01) | LOC: HO.LNP 15:09 | PROVIDERS: PCP Internal Medicine; Visit Provider Obstetrics & Gynecology | DX: R87.610 Atypical squamous cells of undetermined significance on cytologic smear of cervix (ASC-US) (principal) | CPT/HCPCS: 57454; 81025; 88305 ==

== ENCOUNTER → 2024-01-29 14:41 | Outpatient (BNVA) | payer MEDICAID, SELFPAY | PROVIDERS: PCP Internal Medicine; Visit Provider Obstetrics & Gynecology ==

== ENCOUNTER 2024-09-09 07:55 | Emergency (ER) | payer MEDICAID, SELFPAY ==
--- NOTE | ~2024-09-09 | CT_ITS ---
EXAMINATION: CT ABDOMEN PELVIS WITH IV CONTRAST HISTORY: periumbilical abd pain r.o appy COMPARISON: There are comparison is made with the prior examination dated 07/07/2021. TECHNIQUE: CT scan of the abdomen and pelvis was performed following administration of 85 mL Omnipaque 350 using standard departmental protocol. Coronal and sagittal reformatted images were generated and reviewed. Oral contrast material was not administered at the request of the referring physician. This CT exam was performed with one or more of the following dose reduction techniques: automated exposure control, adjustment of the mA and/or kV according to patient size, use of iterative reconstruction technique. DLP: 490 mGy-cm FINDINGS: LOWER CHEST: The visualized lung bases are clear. There is no pleural effusion. CARDIOVASCULATURE: The heart is normal in size. There is no pericardial effusion. LIVER: The liver is normal in size and contour. No liver mass is identified. The hepatic and portal veins are patent. GALLBLADDER / BILE DUCTS: The gallbladder is unremarkable. There is no intra or extrahepatic biliary ductal dilatation. SPLEEN: The spleen is normal in size. No focal splenic lesion is identified. PANCREAS: The pancreas is unremarkable in appearance. ADRENAL GLANDS: Within normal limits. KIDNEYS/RETROPERITONEUM: The kidneys are normal in size. There is no hydronephrosis. No renal masses are identified. LYMPH NODES: There are multiple subcentimeter lymph nodes in the right lower quadrant. No enlarged lymph nodes are identified. VASCULATURE: The abdominal aorta is normal in caliber. MESENTERY/PERITONEUM: No free fluid. No masses. There is no free intraperitoneal gas. STOMACH: The stomach is collapsed, limiting evaluation. SMALL BOWEL: The small bowel is normal in caliber. COLON: There is probable wall thickening of the ascending, transverse, and proximal descending colon, suggestive of colitis. APPENDIX: Normal. URINARY BLADDER/PELVIC ORGANS: The urinary bladder is collapsed, limiting evaluation. An IUD is noted in the endometrial cavity of the uterus. The ovaries are unremarkable in appearance. BONES / SOFT TISSUES: No suspicious bony or soft tissue abnormalities. CT/CT abdomen pelvis w IV con IMPRESSION: Findings suggestive of colitis as described. A normal appendix is visualized. Electronically signed by: Reese Louise MD 09/09/2024 09:46 AM EDT RP
[2024-09-09 08:01] VITALS: BP 112/79; PULSE 105; RESP 16; TEMP 37.7; O2SAT 98; BMI 29.4
[2024-09-09 08:34] LABS: MANUAL DIFF FLAG NO
[2024-09-09 08:35] LABS: Basophils Percent Auto 0.2 % (0-2); Eosinophils Percent Auto 0.4 % (0-4); Hematocrit 42.7 % (37.0-47.0); Hemoglobin 14.7 g/dl (12.0-16.0); Imm Gran Abs Auto 0.04 X10*3/uL (0.00-0.03); Imm Gran Pct Auto 0.4 % (0.0-0.4); Lymphocytes Absolute Auto 0.9 X10*3/uL (1.2-4.9); Lymphocytes Percent Auto 7.8 % (20-40); Mean Corpuscular HGB Conc 34.4 g/dl (31.0-35.0); Mean Corpuscular Hemoglobin 29.2 pg (27.0-33.0); Mean Corpuscular Volume 84.9 fL (80.0-98.0); Mean Platelet Volume 10.2 fL (9.4-12.3); Monocytes Absolute Auto 0.9 X10*3/uL (0.1-1.2); Neutrophils Absolute Auto 9.2 x10*3/uL (2.0-8.3); Neutrophils Percent Auto 83.2 % (45-73); Platelet Count 304 X10*3/uL (160-400); Red Blood Count 5.03 X10*6/uL (4.20-5.50); Red Cell Distribution Width 12.8 % (11.0-16.0); White Blood Count 11.1 X10*3/uL (4.8-10.8)
[2024-09-09 08:36] LABS: Appearance Urine Cloudy; Color Urine Dark Yellow; Glucose Urine UA Negative (Negative); Leukocyte Esterase Urine Moderate (2+) (Negative); Nitrite Urine Negative (Negative); Specific Gravity - Urine >= 1.030 (1.005-1.025); UMIC TRIGGER UACC YES; Urine Blood Negative (Negative); Urine Ketones 40 mg/dL (Negative); Urine Protein Trace mg/dL (Neg-Trace)
[2024-09-09 08:41] LABS: Bacteria Urine 4+ (None Seen); Hyaline Casts Urine 0-2 /LPF (0-2); RBC Urine 0-2 /HPF (0-2); UACC Culture Trigger YES
[2024-09-09 08:41] LABS: IDNOW Serial# 58CA691E; Strep A Nucleic Acid Positive (Negative)
--- NOTE | 2024-09-09 08:50 | ED_ITS ---
HPI - Abdominal Pain General Chief Complaint: Abdominal Pain Stated Complaint: abd pain / n/v Time Seen by Provider: 09/09/24 08:29 Source: patient Mode of arrival: ambulatory Limitations: no limitations History of Present Illness ED Provider: CHACHA DAVIS PA-C HPI narrative: 29-year-old female with pmhx significant for nephrolithiasis, pyelonephrosis and asthma presents to the ED today for evaluation of nausea, vomiting, diarrhea, and abdominal pain which began shortly after waking yesterday. Reports nonbloody emesis/ stool. Admits to pain around her umbilicus. No radiation. Described as an intermittent aching sensation. Currently 8/. Reports trialing tylenol and pepcid without much relief. No known sick contacts. No history of abdominal surgeries. She reports a history of kidney stones which does not feel similar to her current symptoms. Admits to subjective fevers at home. Denies headache, sore throat, rhinorrhea, SOB, cough, chest pain, urinary symptoms, flank pain. Denies chance of . Denies any abnormal vaginal discharge or vaginal bleeding. No pelvic pain. Related Data Home Medications ?Medication ?Instructions ?Recorded ?Confirmed copper 380 square mm intrauterine intrauterine 01/02/22 device (ParaGard T 380A) Previous Rx's ?Medication ?Instructions ?Recorded azithromycin 500 mg tablet 500 mg PO DAILY 5 days #5 tabs 09/09/24 loperamide 2 mg capsule (Imodium 2 mg PO Q6H PRN loose stool #5 caps 09/09/24 A-D) ondansetron 4 mg disintegrating 4 mg PO DAILY PRN nausea and 09/09/24 tablet vomiting 5 days #10 tabs Allergies Allergy/AdvReac Type Severity Reaction Status Date / Time amoxicillin [Amoxicillin] Allergy Severe ANAPHYLAXIS Verified 09/09/24 08:05 Review of Systems Review of Systems Yes all other systems are reviewed and are negative PMFSH Past Medical History Attestation statement: The following information was validated with the patient. Source: old records reviewed and nursing notes reviewed Medical History Pap smear of cervix with ASCUS, cannot exclude HGSIL Kidney stones Asthma Surgical History H/O lithotripsy Family History Family History Mother Diabetes Hypertension Maternal Grandmother Hypertension Social History Social History Alcohol intake: never Patient Tobacco Use Status: Never used Tobacco Smoked in Last 30 Days: No Use of substances other than those prescribed or required for medical reasons: Yes Substance Use Type: Marijuana Advance Directives: No Advance Directives Information Provided: No Do you have a plan to hurt others: No Plan service: No Current occupational status: employed 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 afebrile General: Well appearing, in no acute distress. Skin: Warm, dry, intact. No rashes or lesions. Head: Normocephalic, atraumatic. EENT: Hearing is intact b/l. Conjunctiva clear. Sclera is anicteric. Moist mucus membranes. posterior oropharynx mildly erythematous, no exudates, no edematous tonsils, uvula midlne, controlling secretions, speaking in complete sentences. Neck: Supple without LAD. Cardiac: Chest wall symmetric. RRR. Lungs: Normal respiratory effort without accessory muscle use. CTA bilaterally. Abdomen: nondistended. soft, tender to palpation of periumbilical region. No rebound tenderness or guarding. No McBurney point tenderness. No Rovsing sign. Positive BS x4. no cvat b/l. Ext: Upper and lower extremities atraumatic, without tenderness, deformity, swelling or erythema. Neuro: AOx3. Normal speech. Course Course Course Narrative: 916 -- mild elevation of WBC to 11.1 with left shift. H&H stable with no signs of anemia. No electrolyte abnormalities, kidney function WNL. Liver enzymes WNL. UA showing moderate (2+) leukocyte esterase, 11-20 WBC, 1-20 squamous epithelial cells, and 4+ urine bacteria > patient denies any urinary symptoms. Suspect contamination, will await urine culture results before treating for UTI. she has tested positive for strep throat. Covid, flu, and RSV all negative. >ordered CT abd/pelvis with contrast to rule out appendicitis given periumbilical pain. 1050 -- CT of abdomen and pelvis showing probable wall thickening of the ascending, transverse and proximal descending colon suggestive of colitis. Normal appendix. No evidence of bowel obstruction. Kidneys normal in size, no hydronephrosis. No renal masses. Unremarkable gallbladder. > re-evaluation, patient reports significant improvement in symptoms after receiving Toradol, IV fluids and Zofran. No further episodes of vomiting or diarrhea while in the ED. she is tolerating p.o. intake. > patient informs me that she has a penicillin allergy. States her reaction is throat swelling . I was hoping to start her on Augmentin for strep throat/colitis however given her allergy, will trial azithromycin. she is agreeable. zofran + imodium sent to pharmacy for sx. she appears well, vitals have remained stable. Patient has remained stable throughout ED visit today. Discussed worrisome signs and symptoms and when to return to the ED. All questions answered at this time. Patient is agreeable with disposition and stable for discharge. Medical Decision Making Medical Decision Making MDM Narrative: 29-year-old female with pmhx significant for nephrolithiasis, pyelonephrosis and asthma presents to the ED today for evaluation of nausea, vomiting, diarrhea, and abdominal pain which began shortly after waking yesterday. Patient is slightly tachycardic to 105, vitals otherwise WNL. Afebrile. She is nontoxic appearing in no acute distress. Lying comfortably on the exam bed. Abdomen is soft, nondistended, mildly tender to palpation around periumbilical region without rebound or guarding. Negative McBurney point tenderness. Negative Rovsing sign. Active bowel sounds x4. No CVAT bilaterally. Posterior oropharynx slightly erythematous without noted edema. No tonsillar exudates or peritonsillar masses. Uvula midline. Controlling secretions and speaking in complete sentences. Differential diagnoses: appendicitis, diverticulitis, diverticulosis, UTI, IUP, constipation, viral syndrome, gastroenteritis, gastritis, strep pharyngitis, nephrolitiasis Abdominal exam without peritoneal signs. No evidence of acute abdomen at this time. Well appearing. Low suspicion for acute hepatobiliary disease (including acute cholecystitis). Unlikely pyelonephritis. Plan: labs, UA, CT AP, pain control, zofran, fluids, serial reassessment Differential Diagnosis Differential Diagnoses: The differential diagnosis associated with the presentation includes as above. Admission/Observation not indicated Lab Data MDM Lab Attestation statement: I reviewed the patient's lab results. as above 09/09/24 08:27 09/09/24 08:27 Labs: Lab Results 09/09/24 09/09/24 Range/Units 08:26 08:27 WBC 11.1 H (4.8-10.8) X10*3/uL RBC 5.03 (4.20-5.50) X10*6/uL Hgb 14.7 (12.0-16.0) g/dl Hct 42.7 (37.0-47.0) % MCV 84.9 (80.0-98.0) fL MCH 29.2 (27.0-33.0) pg MCHC 34.4 (31.0-35.0) g/dl RDW 12.8 (11.0-16.0) % Plt Count 304 (160-400) X10*3/uL MPV 10.2 (9.4-12.3) fL Immature Gran % (Auto) 0.4 (0.0-0.4) % Neut % (Auto) 83.2 H (45-73) % Lymph % (Auto) 7.8 L (20-40) % [place] % (Auto) 8.0 (2-11) % Eos % (Auto) 0.4 (0-4) % Baso % (Auto) 0.2 (0-2) % Lymph # (Auto) 0.9 L (1.2-4.9) X10*3/uL [place] # (Auto) 0.9 (0.1-1.2) X10*3/uL Eos # (Auto) 0.0 (0.0-0.4) X10*3/uL Baso # (Auto) 0.0 (0.0-0.2) X10*3/uL Abs Immat Gran (auto) 0.04 H (0.00-0.03) X10*3/uL Absolute Neuts (auto) 9.2 H (2.0-8.3) x10*3/uL Absolute Nucleated RBC 0.000 (0.0-0.012) X10*3/uL Nucleated RBC % (auto) 0.0 (0.0-0.2) /100WBC Sodium 137 (135-145) mmol/L Potassium 3.4 (3.3-5.1) mmol/L Chloride 104 (96-108) mmol/L Carbon Dioxide 25 (22-29) mmol/L Anion Gap 11 L (12-20) BUN 12 (9-16) mg/dL Creatinine 0.76 (0.5-1.4) mg/dL Estim Creat Clear Calc 95.8 Estimated GFR > 60 Random Glucose 106 (60-115) mg/dL Calcium 9.3 (8.4-10.2) mg/dL Total Bilirubin 0.9 (0.0-1.0) mg/dL AST 23 (5-31) U/L ALT 17 (0-31) U/L Alkaline Phosphatase 70 (39-117) U/L Total Protein 7.7 (6.5-8.0) g/dL Albumin 4.3 (3.5-5.0) g/dL Lipase 18 (8-78) U/L Beta HCG, Quant < 2 mIU/mL Urine Color Dark Yellow Urine Appearance Cloudy Urine pH 6.0 (5.0-9.0) Ur Specific [place] >= 1.030 H (1.005-1.025) Urine Protein Trace (Neg-Trace) mg/dL Urine Glucose (UA) Negative (Negative) mg/dL Urine Ketones 40 (Negative) mg/dL Urine Blood Negative (Negative) Urine Nitrite Negative (Negative) Ur Leukocyte Esterase Moderate (2+) H (Negative) Urine RBC 0-2 (0-2) /HPF Urine WBC 11-20 H (0-5) /HPF Ur Squamous Epith Cells 11-20 (0-2) /HPF Urine Bacteria 4+ (None Seen) Hyaline Casts 0-2 (0-2) /LPF Influenza Type A (PCR) NEGATIVE (Negative) Influenza Type B (PCR) NEGATIVE (Negative) RSV RNA Qual (PCR) NEGATIVE (Negative) SARS-CoV-2 RNA (RT-PCR) NEGATIVE (Negative) S. pyogenes GrpA RALPH Positive A (Negative) Independent Interpretation I performed an independent interpretation of an: CT Scan Interpretation: CTA/P without evidence of bowel obstruction Radiology Impression Discussion of test interpretation with radiology: I have reviewed the radiologist's reading. Radiologist Impression: Procedure(s): CT abdomen pelvis w IV con Accession Number(s): [id number] cc: Donna Higgins MD; Chacha Davis~ Report Number: [id number]: Total DLP = 490.00 mGy-cm EXAMINATION: CT ABDOMEN PELVIS WITH IV CONTRAST HISTORY: periumbilical abd pain r.o appy COMPARISON: There are comparison is made with the prior examination dated 07/07/2021. TECHNIQUE: CT scan of the abdomen and pelvis was performed following administration of 85 mL Omnipaque 350 using standard departmental protocol. Coronal and sagittal reformatted images were generated and reviewed. Oral contrast material was not administered at the request of the referring physician. This CT exam was performed with one or more of the following dose reduction techniques: automated exposure control, adjustment of the mA and/or kV according to patient size, use of iterative reconstruction technique. DLP: 490 mGy-cm FINDINGS: LOWER CHEST: The visualized lung bases are clear. There is no pleural effusion. CARDIOVASCULATURE: The heart is normal in size. There is no pericardial effusion. LIVER: The liver is normal in size and contour. No liver mass is identified. The hepatic and portal veins are patent. GALLBLADDER / BILE DUCTS: The gallbladder is unremarkable. There is no intra or extrahepatic biliary ductal dilatation. SPLEEN: The spleen is normal in size. No focal splenic lesion is identified. PANCREAS: The pancreas is unremarkable in appearance. ADRENAL GLANDS: Within normal limits. KIDNEYS/RETROPERITONEUM: The kidneys are normal in size. There is no hydronephrosis. No renal masses are identified. LYMPH NODES: There are multiple subcentimeter lymph nodes in the right lower quadrant. No enlarged lymph nodes are identified. VASCULATURE: The abdominal aorta is normal in caliber. MESENTERY/PERITONEUM: No free fluid. No masses. There is no free intraperitoneal gas. STOMACH: The stomach is collapsed, limiting evaluation. SMALL BOWEL: The small bowel is normal in caliber. COLON: There is probable wall thickening of the ascending, transverse, and proximal descending colon, suggestive of colitis. APPENDIX: Normal. URINARY BLADDER/PELVIC ORGANS: The urinary bladder is collapsed, limiting evaluation. An IUD is noted in the endometrial cavity of the uterus. The ovaries are unremarkable in appearance. BONES / SOFT TISSUES: No suspicious bony or soft tissue abnormalities. CT/CT abdomen pelvis w IV con IMPRESSION: Findings suggestive of colitis as described. A normal appendix is visualized. External Record Review External record reviewed: Inpatient record Prescription Management I considered prescription management with: Antibiotic (Azithromycin) and Other (Zofran, Imodium) Social Determinants Patient?s care significantly limited by Social Determinants of Health including: Other Social Determinant of Health Medications Administered Discontinued Medications Generic Name Dose Route Start Last Admin Trade Name Freq PRN Reason Stop Dose Admin Sodium Chloride 1,000 mls @ 999 mls/hr 09/09/24 09:15 09/09/24 09:35 Ns IV 09/09/24 10:15 999 mls/hr .Q1H1M SULY Administration Iohexol 100 ml 09/09/24 09:31 09/09/24 09:31 Iohexol 350 Mg/Ml 100 Ml Infus..Btl IV 09/09/24 09:32 85 ml ONCE ONE Administration Ketorolac Tromethamine 30 mg 09/09/24 09:01 09/09/24 09:34 Ketorolac Tromethamine 30 Mg/Ml Vial IVPUSH 09/09/24 09:02 30 mg ONCE ONE Administration Ondansetron HCl 4 mg 09/09/24 09:01 09/09/24 09:34 Ondansetron Hcl 4 Mg/2 Ml Vial IVPUSH 09/09/24 09:02 4 mg ONCE ONE Administration Critical Care Time Critical Care Time Critical Care Time: No Discharge Plan Discharge Clinical Impression: Strep pharyngitis, Colitis Patient Disposition: Home, Self-Care Instructions: Strep Throat (ED), Colitis (ED) Additional Instructions: Your blood work today is reassuring. You tested positive for strep throat. The CT scan of your abdomen shows mild colitis. see home care instructions. Azithromycin is an antibiotic that has been sent to your pharmacy. Take this twice daily for the next 5 days to treat both strep throat and colitis. Do not stop taking these antibiotics early or miss any doses as this may cause infection to return or worsen. Take Tylenol and ibuprofen as needed for body aches or fevers. I am also sending Zofran to your pharmacy for you to take as needed for nausea and vomiting. Imodium has been sent to your pharmacy for you to take as needed for diarrhea. Make sure to change your toothbrush as this contains bacteria. Strep throat is contagious. If anyone else in your household is exhibiting symptoms, please advise them to come to the ED, urgent care, or to see their primary care provider. Follow up with your primary care provider this week. Return to the Emergency Department if you experience worsening or uncontrolled pain, tongue swelling, difficulty swallowing, change in your voice, difficulty breathing, fevers 100.4?F or greater, recurrent vomiting, development of a rash, or any other concerning symptoms. In the case of emergency, call 911.? Prescriptions: New azithromycin 500 mg tablet 500 mg PO DAILY 5 Days Qty: 5 0RF ondansetron 4 mg tablet,disintegrating 4 mg PO DAILY PRN (Reason: nausea and vomiting) 5 Days Qty: 10 0RF loperamide [Imodium A-D] 2 mg capsule 2 mg PO Q6H PRN (Reason: loose stool) Qty: 5 0RF No Action ParaGard T 380A 380 square mm intrauterine device intrauterine Referrals: Donna Higgins MD [Primary Care Provider] - Stand Alone Forms: Work/School Release Print Language: Kyrgyz
[2024-09-09 09:02] LABS: Alanine Aminotransferase 17 U/L (0-31); Albumin Level 4.3 g/dL (3.5-5.0); Alkaline Phosphatase 70 U/L (39-117); Anion Gap 11 (12-20); Aspartate Amino Transferase 23 U/L (5-31); Bilirubin Total 0.9 mg/dL (0.0-1.0); Blood Urea Nitrogen 12 mg/dL (9-16); Calcium 9.3 mg/dL (8.4-10.2); Carbon Dioxide 25 mmol/L (22-29); Chloride 104 mmol/L (96-108); Creatinine Clr Calc Pharmacy 95.8; Estimated Glomerular Filt Rate > 60; Glucose Random 106 mg/dL (60-115); Lipase 18 U/L (8-78); Potassium 3.4 mmol/L (3.3-5.1); Sodium 137 mmol/L (135-145); Total Protein 7.7 g/dL (6.5-8.0)
[2024-09-09 09:04] LABS: HCG Quantitative < 2 mIU/mL
--- OUTSIDE RECORDS SUMMARY | 2024-09-09 09:04 | XMS_ITS | Encounter Summary ---
Author Organization [facility] [facility] Address [address] [place] [address] [address] [place] [address] Care Team Providers Care Lifter/Driver Name Role Phone Poly Fernandez MD Primary Care Provider [phone] Encounter Details Date Type Department Care Team (Late st Contact Info) Description 04/03/2022 Abstract [facility] [address] [place] [address] [id number] Dental, Provider, DDS Social History Tobacco Use Types Packs/Day Years Used Date Smoking Tobacco: Never Assessed Comments Unknown Sex and Gender Information Value Date Recorded Sex Assigned at Female 03/11/2022 10:15 AM EDT Legal Sex Female 10:15 AM EDT Gender Identity Female 03/11/2022 10:15 AM EDT Sexual Orientation Straight 03/27/2022 1: 40 PM EST documented as of this encounter Plan of Treatment Upcoming Encounters Date Type Department Care Team (Late st Contact Info) Description 10/13/2024 2:00 PM EDT Office Visit [facility] [address] [place] [address] Abbie Urena, OD [address] [place] [address] documented as of this encounter Visit Diagnoses Not on filedocumented in this encounter Care Teams Lifter/Driver Relationship Specialty Start Date End Date Poly Fernandez MD [address] [place] [address] PCP - General Family Medicine 07/18/22 documented as of this encounter
--- OUTSIDE RECORDS SUMMARY | 2024-09-09 09:04 | XMS_ITS | Clinical Summary ---
Author Organization [facility] Address [address] [place] [address] Care Team Providers Care Impregnator [employer] Products Name Role Phone Unavailable Primary Care Provider Unavailabl e Social History Tobacco Use Types Packs/Day Years Used Date Smoking Tobacco: Never Assessed Comments Unknown Sex and Gender Information Value Date Recorded Sex Assigned at Not on file Legal Sex Female 4:33 AM EST Gender Identity Not on file Sexual Orientation Not on file Plan of Treatment Health Maintenance Due Date Last Done Comments Hepatitis B Vaccines (1 of 3 - 19+ 3-dose series) 2016 Cervical Cancer Screening: P ap Smear 2018 COVID-19 Vaccine ( - 2023-2 5 season) 2024 Influenza Vaccine (Season Ended) 2025 DTaP,Tdap,and Td Vaccines (2 - Td or Tdap) 10/28/2026 10/28/2016 HIB Vaccines Aged Out No longer eligi ble based on patient's age to complete this topic HPV Vaccines Aged Out No longer eligi ble based on patient's age to complete this topic Hepatitis A Vaccines Aged Out No long er eligible based on patient's age to complete this topic IPV Vaccines Aged Out No longer eligi ble based on patient's age to complete this topic MMR Vaccines Aged Out No longer eligi ble based on patient's age to complete this topic Meningococcal ACWY Vaccine Aged Out N o longer eligible based on patient's age to complete this topic Meningococcal B Vaccine Aged Out No l onger eligible based on patient's age to complete this topic Pneumococcal Vaccine: Pediat rics (0 to 5 Years) and At-Risk Patients (6 to 64 Years) Aged Out No longer eligi ble based on patient's age to complete this topic RSV Immunization Patients Un karan 20 months Aged Out No longer eligible b ased on patient's age to complete this topic Varicella Vaccines Aged Out No longer eligible based on patient's age to complete this topic
--- OUTSIDE RECORDS SUMMARY | 2024-09-09 09:04 | XMS_ITS | Encounter Summary ---
Author Organization [facility] Address [address] [place] [phone] Phone Care Team Providers Care Boring Mill Set Up Operator Vertical Name Role Phone Jaimie Lockhart HOUSING OFFICER Primary Care Provider Un available Encounter Details Date Type Department Care Team (Late st Contact Info) Description 01/31/2012 Documentation [facility] [place] [address] [place] [address] Family Medicine, Physician [facility] [address] [place], [place] [phone] Social History Tobacco Use Types Packs/Day Years Used Date Smoking Tobacco: Never Assessed Comments Unknown Sex and Gender Information Value Date Recorded Sex Assigned at Not on file Legal Sex Female 5:00 PM EDT Gender Identity Not on file Sexual Orientation Not on file documented as of this encounter Plan of Treatment Not on file documented as of this encounter Visit Diagnoses Not on filedocumented in this encounter Care Teams Boring Mill Set Up Operator Vertical Relationship Specialty Start Date End Date Jaimie Lockhart NP PCP - General 12/20/16 06/02/22 documented as of this encounter
--- OUTSIDE RECORDS SUMMARY | 2024-09-09 09:04 | XMS_ITS | Encounter Summary ---
Author Organization [facility] Address [address] [place] [phone] Phone Care Team Providers Care Heel Builder Machine Name Role Phone Jaimie Lockhart SLOT MACHINE DEPARTMENT FLOORPERSON Primary Care Provider Un available Encounter Details Date Type Department Care Team (Late st Contact Info) Description 02/04/2012 Documentation [facility] [place] [address] [place] [address] Family Medicine, Physician [facility] [address] [place], [place] [address] Social History Tobacco Use Types Packs/Day Years [...] on filedocumented in this encounter Care Teams Heel Builder Machine Relationship Specialty Start Date End Date Jaimie Lockhart NP PCP - General 12/20/16 06/02/22 documented as of this encounter
--- OUTSIDE RECORDS SUMMARY | 2024-09-09 09:04 | XMS_ITS | Encounter Summary ---
Author Organization [facility] Address [address] [place] [phone] Phone Care Team Providers Care Physical Design Engineer Name Role Phone Jaimie Lockhart ASSESSMENT NURSE PRACTITIONER Primary Care Provider Un available Encounter Details Date Type Department Care Team (Late st Contact Info) Description 09/12/2009 Documentation [facility] [place] Family Medicine [address] [place] [address] Family Medicine, Physician [address] [place], [place] [phone] Social History Tobacco Use Types Packs/Day Years [...] on filedocumented in this encounter Care Teams Physical Design Engineer Relationship Specialty Start Date End Date Jaimie Lockhart NP PCP - General 12/20/16 06/02/22 documented as of this encounter
--- OUTSIDE RECORDS SUMMARY | 2024-09-09 09:04 | XMS_ITS | Clinical Summary ---
Author Organization [facility] Address [address] [place] [address] Phone Care Team Providers Care Elevated Work Platform Operator Name Role Phone Unavailable Primary Care Provider Unavailabl e Immunizations Immunization Administration Dates Next Due DTaP 5 08/25/2001, 9,03/11/1998, 998,1997 H1N1 03/15/2009 HPV, Quadrivalent 10/31/2009,02/23/2009,11/15/19 Hep A, ped/adol 08/04/2014,07/29/2013 Hep B, ped/adol 03/11/1998,1997,1997 Hib (PRP-T) 11/14/1998, 8,01/09/1998, 998 IPV 08/25/2001, 1,01/09/1998, 998 Influenza Split 04/19/2013,05/08/2011,01/22/2010 Influenza, injectable, quadrivalent 04/05/2015 Influenza, injectable, trivalent 03/15/2009 MMR 08/25/2001,09/08/1998 Meningococcal Conj (Menactra) MCV4P 08/04/2014,0 11/14/2008 Tdap 04/05/2015,11/14/2008 Varicella 11/14/2008,09/08/1998 Family History Relation Name Status Comments Brother Alive Brother: Alive and well Father Alive Father: Alive a nd well Mother Alive Mother: Alive a nd well Other Family history of Asthma Sister 1 Alive Sister: Alive a nd well, Alive and well Sister 2 Alive Sister: Alive a nd well, Alive and well Social History Tobacco Use Types Packs/Day Years Used Date Smoking Tobacco: Never Comments:Never smoker Comments Unknown Sex and Gender Information Value Date Recorded Sex Assigned at Not on file Legal Sex Female 5:00 PM EDT Gender Identity Not on file Sexual Orientation Not on file Last Filed Vital Signs Vital Sign Reading Time Taken Comments Blood Pressure 103/67 09/14/2015 12:00 AM EDT Pulse 77 09/14/2015 12:00 AM EDT Temperature 37.4 ??C (99.4 ??F) 09/14/2015 12:00 AM E DT Respiratory Rate - - Oxygen Saturation - - Inhaled Oxygen Concentration - - Weight 72.8 kg (160 lb 6.4 oz) 09/14/2015 12:00 AM EDT Height 151.8 cm (4' 11.75 ) 08/17/2015 12:00 AM EDT Body Mass Index 31.59 08/17/2015 12:00 AM EDT Plan of Treatment Health Maintenance Due Date Last Done Comments Influenza Vaccines (#1) 2023 02/01/20, 07/15/2018, 04/05/2015, Additional history exists COVID-19 Vaccine ( season) 2024 DTaP,Tdap,and Td Vaccines (10 - Td or Tdap) 10/14/2028 10/14/2018, 10/28/2016, 04/05/2015, Additional history exists Hepatitis B Vaccines Completed 03/11/1998, 1997, 1997 HIB Vaccines Completed 11/14/1998, 02/11, 01/09/1998, Additional history exists IPV Vaccines Completed 08/25/2001, 01/10, 01/09/1998, Additional history exists MMR Vaccines Completed 08/25/2001, 09/08/1998 Varicella Vaccines Completed 11/14/2008, 09/08/1998 HPV Vaccines Completed 10/31/2009, 02/09, 11/14/2008 Hepatitis A Vaccines Completed 08/04/2014, 07/30/19 14 Meningococcal Vaccine Completed 08/04/2014, 009 Men B Vaccine Aged Out No longer elig ible based on patient's age to complete this topic Pneumococcal Vaccine Aged Out No long er eligible based on patient's age to complete this topic Procedures * Due to [place] state law, this organization might not be sharing sensitive test results. Procedure Name Priority Date/Time Associated Diagnosis Comments CHLAMYDIA AND GONORRHEA, AMPLIFIED Routine 08/18/2015 2:01 PM EDT from Last 3 Months or Most Recently Relevant to Health Maintenance Results * Due to [place] state law, this organization might not be sharing sensitive test results. * Chlamydia and Gonorrhoea, Amplified (08/18/2015 2:01 PM EDT) [facility] URINE GC AMP PROBE NEGATIVE [facility] Comment: No Neisseria Gonorrhoeae RNA detected in this patient's sample (REFERENCE RANGE/NORMAL VALUE: NOT DETECTED) NOTE: This test uses garbage depot worker-mediated amplification method to detect rRNA from C.Trachomatis and N.Gonorrhoeae. A negative result does not preclude infection. In the case of a negative urine result, testing of an endocervical(female) or urethral(male) specimen is recommended if there is high clinical suspicion of infection. The performance characteristics of this test have not been evaluated in children. The Aptima Combo2 assay is not intended for the evaluation of suspected sexual abuse or for other medico-legal indications. The ordering provider should assess if the patient had consensual sex without risk of sexual abuse. Consult the [facility] if needed. Contact phone number . Therapeutic failure or success cannot be determined with the Aptima Combo2 assay since nucleic acid may persist following appropriate antimicrobial therapy. The Centers for Disease Control and Prevention (CDC) recommends confirmatory retesting using culture or a different nucleic acid amplification test when positive results occur, if indicated. Testing performed or reported by [facility], a Service of [facility], [address] [place] [address] CLIA ??[id number] Sushant Walker MD, PhD, Building Stonecutter URINE CHLAMYDIA AMP PROBE NEGATIVE [facility] Comment: No Chlamydia Trachomatis RNA detected in this patient's sample (REFERENCE RANGE/NORMAL VALUE: NOT DETECTED) 08/18/2015 2:01 PM EDT Narrative [facility] - 08/18/2015 2:01 PM EDT URINE CHLAMYDIA GC AMP PROBE us Jaimie Lockhart NP LAB MICROBIOLOGY - GENERA L ORDERABLES Final Result [facility] [address] [place] [address], from Last 3 Months or Most Recently Relevant to Health Maintenance
--- OUTSIDE RECORDS SUMMARY | 2024-09-09 09:04 | XMS_ITS | Clinical Summary ---
Author Organization [employer] Address [address] [place] [address] Care Team Providers Care Customer Operations Specialist Name Role Phone Poly Fernandez MD Primary Care Provider [phone] Allergies Active Allergy Reactions Criticality Noted Date Comments Amoxicillin Hives Low 04/09/2022 Medications econazole nitrate 1 % cream Apply topically in the morning. 15 g 3 Active lidocaine (Lidoderm) 5 % patchIndication s:Acute left-sided thoracic back pain,Muscle spasm Apply 1 patch topically in the morning. Remove & discard patch within 12 hours or as directed by MD. 30 patch 3 Active ibuprofen 800 MG tabletIndicatio ns:Acute left-sided thoracic back pain,Muscle spasm Take 1 tablet (800 mg) by mouth 3 times daily. 90 tablet 3 Active azithromycin (Zithromax) 250 MG tablet Take two tablets on day one followed by one tablet from day two until gone. 6 tablet 4 Active Active Problems Problem Noted Date Diagnosed Date Acute left-sided thoracic back pain 01/15/2023 Assessment & Plan (01/15/2023 2:23 PM EDT): Apply heat on affected area Alternate acetaminophen and ibuprofen PRN Lidocaine patch Flexeril 5mg q 8HRS ( I DEVOPS ENGINEER SHE CAN NOT DRIVE IF SHE IS TAKING THIS MEDICATION DUE TO SOMNOLENCE) Muscle spasm 01/15/2023 Scalp mass 07/18/2022 Assessment & Plan (07/18/2022 12:55 PM EST): Sent to gen surgery Class 1 obesity without seri ous comorbidity with body mass index (BMI) of 30.0 to 30.9 in adult 07/18/2022 Assessment & Plan (07/18/2022 12:55 PM EST): Discussed calorie deficit, recommended reduction of 20-30% of maintenance calories. Recommended to decrease soda and sugary beverage consumption. Recommended at least 20 g per meal of protein to assist with satiety. Recommended at least 150 min/week of moderate intensity exercise. Labs sent Tooth impaction 04/15/2022 Encounters Date Type Department Care Team Description 07/23/2024 [address] Risk Score [facility] (C3) Department [address] [place] [id number] Provider, Population Health Generic from Last 3 Months Immunizations Name Administration Dates Next Due DTaP, 5 pertussis antigens 08/25/2001,,03/11/1998,01/09,1997 HPV, Quadrivalent 10/31/2009,02/23/2009,11/15/19 09 Hep A, ped/adol, 2 dose 08/04/2014,07/29/2013 Hep B, Adolescent or Pediatric 03/11/1998,1997,1997 Hib (PRP-T) 11/14/1998, 8,01/09/1998,11/08 IPV 08/25/2001, 1,01/09/1998,11/08 Influenza Injectable Quadriv alant Preservative Free IIV4 MDCK 01/31/2022 Influenza injectable quadriv alent IIV4 with preservative 04/05/2015 Influenza injectable quadriv alent preservative free 07/15/2018 Influenza, IIV3, injectable 03/15/2009 Influenza, Split (incl. sariah fied surface antigen) 04/19/2013,05/08/2011,01/22/2010 MMR 08/25/2001,09/08/1998 Meningococcal MCV4P ACYW-135 08/04/2014,11/15/19 09 Novel [id number], all formulations 03/15/2009 Tdap 10/14/2018, 7,04/05/2015,11/14 Varicella 11/14/2008,09/08/1998 Social History Tobacco Use Types Packs/Day Years Used Date Smoking Tobacco: Never Passive Smoke Exposure: Never Smokeless Tobacco: Never Tobacco Cessation:Counseling Given: Not Answered Alcohol Use Standard Drinks/Week Comments Never 0 (1 standard drink = 0.6 oz pur e alcohol) Depression Answer Date Recorded Patient Health Questionnaire-9 Score 2 07/18/2022 Housing Stability Answer Date Recorded What is your housing situation today? I have avtar french 03/10/[address] you li ve. Do you have problems with any of the following? None of the above 03/10/2023 Food Insecurity Answer Date Recorded Within the past 12 months, y ou worried that your food would run out before you got money to buy more: Never True 03/10/2023 Within the past 12 months,th e food you bought just didn't last and you didn't have enough money to get more: Never True Transportation Answer Date Recorded In the past 12 months, has l ack of transportation kept you from medical appts, meetings, work or from getting things needed for daily living? No 03/10/2023 Utilities Answer Date Recorded In the past 12 months, has t he electric, gas, oil or water company threatened to shut off services in your home? No 03/10/2023 Depression Answer Date Recorded Patient Health Questionnaire-2 Score 0 07/18/2022 Comments Unknown Sex and Gender Information Value Date Recorded Sex Assigned at Female 03/11/2022 10:15 AM EDT Legal Sex Female 10:15 AM EDT Gender Identity Female 03/11/2022 10:15 AM EDT Sexual Orientation Straight 03/27/2022 1: 40 PM EST Last Filed Vital Signs Vital Sign Reading Time Taken Comments Blood Pressure 112/64 07/23/2023 2:36 PM EDT Pulse 65 07/23/2023 2:36 PM EDT Temperature 35.2 ??C (95.3 ??F) 01/15/2023 1:54 PM ED T Respiratory Rate 20 01/15/2023 1:54 PM EDT Oxygen Saturation 100% 01/15/2023 1:54 PM EDT Inhaled Oxygen Concentration - - Weight 74.6 kg (164 lb 8 oz) 01/15/2023 1:54 PM EDT Height 154.9 cm (5' 1 ) 01/15/2023 1:54 PM EDT Body Mass Index 31.08 01/15/2023 1:54 PM EDT Plan of Treatment Upcoming Encounters Date Type Department Care Team (Late st Contact Info) Description 10/13/2024 2:00 PM EDT Office Visit [facility] [address] [place] [address] Romel, Abbie, OD [address] [place] [address] Health Maintenance Due Date Last Done Comments HIV Screening 1997 Lipid Panel 1997 Alcohol/Substance Use Screening 2009 Family Planning (PISQ) 2012 Hepatitis C Screening 08/14/2015 Depression Screening 07/19/2023 07/18/2022, 07/19/19 23 SDOH Screening 07/19/2023 07/18/2022 COVID-19 Vaccine ( season) 2024 10/26/2020, 09/28/2020 Influenza Vaccine (#1) 2024 , 07/15/2018, 04/05/2015, Additional history exists Dental Oral Exam 01/24/2024 07/23/2023 Dental Prophylaxis 01/24/2024 07/23/2023 Tobacco Screening 07/22/2024 07/23/2023 Dental X-Ray: Bitewings 07/23/2024 07/23/2023 Dental X-Ray: Full Mouth 04/16/2025 04/15/2022 Pap Smear 10/20/2026 10/21/2023, 08/2 07/2020, 12/29/2020 DTaP/Tdap/Td Vaccines (10 - Td or Tdap) 10/14/2028 10/14/2018, 10/28/2016, 04/05/2015, Additional history exists Zoster Vaccines (1 of 2) 08/14/2047 RSV Patients and Patients Aged 60 years or older (1 - 1-dose 75+ series) 2072 Hepatitis B Vaccines Completed 03/11/1998, 1997, 1997 HIB Vaccines Completed 11/14/1998, 02/11, 01/09/1998, Additional history exists IPV Vaccines Completed 08/25/2001, 01/10, 01/09/1998, Additional history exists HPV Vaccines Completed 10/31/2009, 02/09, 11/14/2008 Hepatitis A Vaccines Completed 08/04/2014, 07/30/19 14 Meningococcal Vaccine Completed 08/04/2014, 009 Pneumococcal Vaccine: Pediatrics (0 to 5 Years) and At-Risk Patients (6 to 49) Years) Aged Out No longer eligible based on patient's age to complete this topic RSV under 20 months Aged Out No longe r eligible based on patient's age to complete this topic Rotavirus Vaccines Aged Out No longer eligible based on patient's age to complete this topic Procedures Procedure Name Priority Date/Time Associated Diagnosis Comments PAP SMEAR Routine 10/21/2023 8:44 AM EDT Full PROPHYLAXIS - ADULT Routine 07/23/2023 3:00 PM EDT BITEWINGS - 4 RADIOGRAPHIC IMAGES Routine 07/23/2023 3:00 PM EDT PERIODIC ORAL EVALUATION - ESTABLISHED PATIENT Routine 07/23/2023 3:00 PM EDT PANORAMIC RADIOGRAPHIC IMAGE Routine 04/15/2022 5:30 PM EST from Last 3 Months or Most Recently Relevant to Health Maintenance Results * Pap Smear (10/21/2023 8:44 AM EDT) 10/21/2023 8:44 AM EDT 10/22/2023 6:00 AM EDT [facility] - 11/10/2023 11:16 AM EDT ----- ------- Name: Shira Craig ?Age/Sex: 28/F ? : 1995 Unit#: [id number] ?? Attend Dr: Carlene Post CNM ?Re10/21/23 ?Status: DEP REF ? Location: HO.LNP ?Disch: ? ----- ------- SPEC : [id number] ?RECD: 10/22/23 ? STATUS: ??SOUT ? REQ NUM: [id number] ? HEATHER: 10/21/23 ? SUBM DR: Carlene Post CNM ? ENTERED: ??10/22/23 ?SP TYPE: Pap Smr ?OTHR DR: Donna Higgins MD ? ORDERED: ??Pap Smear, PAP path review ? Interpretation ?? General Category: ?? Epithelial cell abnormality. ?? Adequacy: ?Endocervical component present. ?? Interpretation: ?Atypical squamous cells of undetermined significance, ?cannot exclude moderate dysplasia (ASC-H). ?Abundant, partially obscuring acute inflammation and blood. ? HPV mRNA E6/E7: ?DETECTED ? This assay detects E6/E7 viral messenger RNA (mRNA) from 14 high-risk HPV types (16, 18, ?? 31, 33, 35, 39, 45, 51, 52, 56, 58, 59, 66, 68) ? HPV Type 16 RNA: ?Not Detected ?? HPV Type 18/45 RNA: ? Not Detected ? HPV testing performed by [facility], [place], [place]. ??See reference laboratory ?? portion of the EMR for entire report. ?Clinical Information LMP: 09/28/23 Previous PAP test: 01/01/21, WNL. ? Material Received ?? ThinPrep-Cervical Copies To: ?? Donna Higgins MD ?? [facility] ?? [address] ?? [place] [address] ?? [phone] ?? Carlene Post CNM ?? [facility] ?? [address] ?? [place] [address] ?? [phone] ? CONTINUED ON NEXT PAGE ----- ------- Name: Craig,Dalishalee ?Age/Sex: 28/F ? : 1995 Unit#: [id number] ?? Attend Dr: Carlene Post CNM ?Re10/21/23 ?Status: DEP REF ? Location: HO.LNP ?Disch: ? ----- ------- SPEC : [id number] ?RECD: 10/22/23 ? STATUS: ??SOUT ? REQ NUM: [id number] ? HEATHER: 10/21/23 ? SUBM DR: Carlene Post CNM ? ENTERED: ??10/22/23 ?SP TYPE: Pap Smr ?OTHR DR: Donna Higgins MD ? ORDERED: ??Pap Smear, PAP path review ? ----- ------- Signed (signature on file) Marylou [place] 11/10/23 1116 ? ----- ------- ? END OF REPORT ? us Generic External Data Provider LAB CYTOLOGY JORDYN WANG Final Result [facility] [address] [place], [place] [id number] [phone] from Last 3 Months or Most Recently Relevant to Health Maintenance Insurance [facility] C[place] ST[place] AD[place] Care Teams Customer Operations Specialist Relationship Specialty Start Date End Date Poly Fernandez MD [address] [place] [id number] PCP - General Family Medicine 07/18/22
--- OUTSIDE RECORDS SUMMARY | 2024-09-09 09:04 | XMS_ITS | Encounter Summary ---
Author Organization [facility] Address [address] [place] [address] Phone Care Team Providers Care Dental Technician Apprentice Name Role Phone Jaimie Lockhart SEO EXECUTIVE Primary Care Provider Un available Encounter Details Date Type Department Care Team (Late st Contact Info) Description 05/14/2016 Documentation [facility] Family Medicine [address] [place] [address] Family Medicine, Physician [facility] [place] [address] Social History Tobacco Use Types Packs/Day Years [...] on filedocumented in this encounter Care Teams Dental Technician Apprentice Relationship Specialty Start Date End Date Jaimie Lockhart NP PCP - General 12/20/16 06/02/22 documented as of this encounter
--- OUTSIDE RECORDS SUMMARY | 2024-09-09 09:04 | XMS_ITS | Encounter Summary ---
Author Organization [facility] Address [address] [place] [address] Phone Care Team Providers Care Senior Data Developer Name Role Phone Jaimie Lockhart CAUSTIC LIQUOR MAKER Primary Care Provider Un available Encounter Details Date Type Department Care Team (Late st Contact Info) Description 12/26/2016 Conversion Encounter [facility] - [address] [address] Social History Tobacco Use Types Packs/Day Years [...] on filedocumented in this encounter Care Teams Senior Data Developer Relationship Specialty Start Date End Date Jaimie Lockhart NP PCP - General 12/20/16 06/02/22 documented as of this encounter
--- OUTSIDE RECORDS SUMMARY | 2024-09-09 09:04 | XMS_ITS | Encounter Summary ---
Author Organization [facility] Address [address] [place] [address] Phone Care Team Providers Care Groundskeeping Yardman Name Role Phone Jaimie Lockhart CIGARETTE TESTER Primary Care Provider Un available Encounter Details Date Type Department Care Team (Late st Contact Info) Description 02/22/2010 Documentation [facility] Family Medicine [address] [place] [address] Family Medicine, Physician [address] [place], [place] [address] Social History Tobacco Use Types Packs/Day Years [...] on filedocumented in this encounter Care Teams Groundskeeping Yardman Relationship Specialty Start Date End Date Jaimie Lockhart NP PCP - General 12/20/16 06/02/22 documented as of this encounter
--- OUTSIDE RECORDS SUMMARY | 2024-09-09 09:04 | XMS_ITS | Encounter Summary ---
Author Organization [facility] Address [address] [place] [address] Phone Care Team Providers Care Technical Services Manager Name Role Phone Jaimie Lockhart RADIOTELEGRAPHER Primary Care Provider Un available Encounter Details Date Type Department Care Team (Late st Contact Info) Description 05/15/2016 Documentation [facility] [place] [address] [place] [address] Family Medicine, Physician [facility] [place] [address] Social History Tobacco Use Types Packs/Day Years [...] on filedocumented in this encounter Care Teams Technical Services Manager Relationship Specialty Start Date End Date Jaimie Lockhart NP PCP - General 12/20/16 06/02/22 documented as of this encounter
[2024-09-09 09:14] LABS: Influenza A PCR NEGATIVE (Negative); Influenza B PCR NEGATIVE (Negative); Resp Syncy Virus RNA Qual PCR NEGATIVE (Negative); SARS COV2 PCR INHOUSE NEGATIVE (Negative)
[2024-09-09] MEDS: iohexoL 350 MG/ML 100 ML INFUS..BTL IV (09:31)
[2024-09-09] MEDS: ondansetron HCL 4 MG/2 ML VIAL IVPUSH (09:34)
[2024-09-09] MEDS: Ketorolac Tromethamine 30 MG/ML VIAL IVPUSH (09:34)
[2024-09-09] MEDS: 0.9 % Sodium Chloride 1,000 ML 999 ML IV (09:35)
[2024-09-09 10:46] VITALS: BP 104/65; PULSE 79; RESP 14; O2SAT 97
[2024-09-09 11:05] VITALS: BP 106/54; PULSE 76; RESP 14; TEMP 36.6; O2SAT 98
== END 2024-09-09 11:05 | disposition home or self-care (01) ==
PROVIDERS: Emergency Provider Emergency Medicine; PCP Internal Medicine
DX: K52.9 Noninfective gastroenteritis and colitis, unspecified (principal); J02.0 Streptococcal pharyngitis; R11.2 Nausea with vomiting, unspecified; R10.2 Pelvic and perineal pain; Z03.818 Encounter for observation for suspected exposure to other biological agents ruled out; Z79.899 Other long term (current) drug therapy
CPT/HCPCS: 0241U; 74177; 80053; 81001; 83690; 84702; 85025; 87086; 87651; 96374; 96375; 99284; J1885; J2405; Q9967

== ENCOUNTER → 2024-09-09 09:14 | Outpatient (BNV) | payer MEDICAID, SELFPAY | PROVIDERS: Emergency Provider Emergency Medicine; PCP Internal Medicine; Visit Provider Radiology Diagnostic Radiology | DX: R10.33 Periumbilical pain (principal) | CPT/HCPCS: 74177 ==

== ENCOUNTER 2024-12-01 11:21 | Outpatient (REF) | payer MEDICAID, SELFPAY ==
--- OUTSIDE RECORDS SUMMARY | 2024-12-01 12:21 | XMS_ITS | Encounter Summary ---
Author Organization [email or web address] Address [address] [place] [address] Care Team Providers Care Pencil Sorter Name Role Phone Poly Fernandez MD Primary Care Provider [phone] Encounter Details Date Type Department Care Team (Latest Contact Info) Description 11/30/2024 Travel Social History Tobacco Use Types Packs/Day Years Used Date Smoking Tobacco: Never Passive Smoke Exposure: Never Smokeless Tobacco: Never Alcohol Use Standard Drinks/Week Comments Never 0 (1 standard drink = 0.6 oz pur e alcohol) Depression Answer Date Recorded Patient Health Questionnaire-9 Score 2 12/01/2024 Patient Health Questionnaire-9 Score 2 12/01/2024 Last PHQ-9: Questionnaire Data Not on file 0 12/01/2024 Housing Stability Answer Date Recorded What is your housing situation today? I have avtar french 12/01/[address] you li ve. Do you have problems with any of the following? None of the above 12/01/2024 Food Insecurity Answer Date Recorded Within the past 12 months, y ou worried that your food would run out before you got money to buy more: Never True 12/01/2024 Within the past 12 months,th e food you bought just didn't last and you didn't have enough money to get more: Never True Transportation Answer Date Recorded In the past 12 months, has l ack of transportation kept you from medical appts, meetings, work or from getting things needed for daily living? No 12/01/2024 Utilities Answer Date Recorded In the past 12 months, has t he electric, gas, oil or water company threatened to shut off services in your home? No 12/01/2024 Depression Answer Date Recorded Patient Health Questionnaire-2 Score 1 12/01/2024 Internet Access Answer Date Recorded Internet Access Q1 Yes 12/01/2024 Internet Access Q2 Not on file 12/01/2024 Comments Unknown Sex and Gender Information Value Date Recorded Sex Assigned at Female 03/11/2022 10:15 AM EDT Legal Sex Female 10:15 AM EDT Gender Identity Female 03/11/2022 10:15 AM EDT Sexual Orientation Straight 03/27/2022 1: 40 PM EST documented as of this encounter Plan of Treatment Not on file documented as of this encounter Visit Diagnoses Not on filedocumented in this encounter Additional Health Concerns Assessment Noted Time PHQ-9 Depression Total Score: 2 07/19/19 23 11:06 AM EST documented as of this encounter Care Teams Pencil Sorter Relationship Specialty Start Date End Date Poly Fernandez MD [address] [place] [address] PCP - General Family Medicine 07/18/22 documented as of this encounter
--- OUTSIDE RECORDS SUMMARY | 2024-12-01 12:21 | XMS_ITS | Clinical Summary ---
Author Organization [facility] it Address [address] [place] [address] Care Team Providers Care Clerical Supervisor Name Role Phone Unavailable Primary Care Provider [...] Screening: P ap Smear 2018 COVID-19 Vaccine (1 - 2023-2 5 season) 2024 Depression Screening 05/12/2024 Influenza Vaccine (#1) 2025 DTaP,Tdap,and Td Vaccines (2 - Td [...] 5 Years) and At-Risk Patients (6 to 49 Years) Aged Out No longer eligi ble based on patient's age to complete this topic RSV Immunization Patients Un karan 20 months Aged Out No longer eligible b ased on patient's age to complete this topic Varicella Vaccines Aged Out No longer eligible based on patient's age to complete this topic
--- OUTSIDE RECORDS SUMMARY | 2024-12-01 12:21 | XMS_ITS | Encounter Summary ---
Author Organization [facility] Address [address] [place] [phone] Phone Care Team Providers Care Boning Room Worker Name Role Phone Jaimie Lockhart CUTTING AND SPLICING SUPERVISOR Primary Care Provider Un available Encounter Details Date Type Department Care Team (Late st Contact Info) Description 01/31/2012 Documentation [facility] [place] [facility] [address] [place] [address] Family Medicine, Physician [facility] [address] [place], [place] [id number] Social History Tobacco Use Types Packs/Day Years [...] on filedocumented in this encounter Care Teams Boning Room Worker Relationship Specialty Start Date End Date Jaimie Lockhart NP PCP - General 12/20/16 06/02/22 documented as of this encounter
[2024-12-01 13:16] LABS: MANUAL DIFF FLAG NO
[2024-12-01 13:38] LABS: Hematocrit 43.8 % (37.0-47.0); Hemoglobin 14.6 g/dl (12.0-16.0); Imm Gran Abs Auto 0.01 X10*3/uL (0.00-0.03); Imm Gran Pct Auto 0.1 % (0.0-0.4); Lymphocytes Absolute Auto 2.3 X10*3/uL (1.2-4.9); Mean Corpuscular HGB Conc 33.3 g/dl (31.0-35.0); Mean Corpuscular Hemoglobin 28.6 pg (27.0-33.0); Mean Corpuscular Volume 85.9 fL (80.0-98.0); NRBC Abs Auto 0.000 X10*3/uL (0.0-0.012); NRBC Pct Auto 0.0 /100WBC (0.0-0.2); Platelet Count 352 X10*3/uL (160-400); Red Blood Count 5.10 X10*6/uL (4.20-5.50); White Blood Count 6.8 X10*3/uL (4.8-10.8)
[2024-12-01 13:48] LABS: Hemoglobin A1C 116.9304 umol/L; Total Hemoglobin (HGBA1C) 3749.6069 umol/L
[2024-12-01 13:53] LABS: Alanine Aminotransferase 16 U/L (0-31); Albumin Level 4.6 g/dL (3.5-5.0); Alkaline Phosphatase 73 U/L (39-117); Anion Gap 12 (12-20); Aspartate Amino Transferase 25 U/L (5-31); Blood Urea Nitrogen 15 mg/dL (9-16); Calcium 9.5 mg/dL (8.4-10.2); Carbon Dioxide 26 mmol/L (22-29); Chloride 106 mmol/L (96-108); Cholesterol 191 mg/dL (<200); Estimated Glomerular Filt Rate > 60; HDL Cholesterol 47 mg/dL (>40); Potassium 4.0 mmol/L (3.3-5.1); Sodium 140 mmol/L (135-145); Total Protein 7.8 g/dL (6.5-8.0); Triglycerides 68 mg/dL (<150)
[2024-12-01 14:02] LABS: HIV Num 1 0.18 S/CO (0.00-0.99); ~HepC Num1 0.18 S/CO (0.00-0.79); ~Hepatitis C Antibody Nonreactive (Nonreactive)
[2024-12-04 08:28] LABS: TS Negative Control Passed; TS Panel A 0; TS Panel B 0; TS Positive Control Passed; TSpotTB Negative (Negative)
== END 2024-12-01 11:22 | disposition home or self-care (01) ==
LOC: HO.HHCL 11:21
PROVIDERS: PCP Internal Medicine
DX: Z00.00 Encounter for general adult medical examination without abnormal findings (principal); Z11.1 Encounter for screening for respiratory tuberculosis; Z11.59 Encounter for screening for other viral diseases; Z11.4 Encounter for screening for human immunodeficiency virus [HIV]
CPT/HCPCS: 36415; 80053; 80061; 83036; 84443; 85025; 86481; 86803; 87389